=== PATIENT | female | born 1980 | race Caucasian/White ===

== ENCOUNTER 2017-03-17 12:07 | Observation (INO) | payer OTHER ==
[2017-03-17] MEDS ORDERED: ACETAMINOPHEN IV (For NPO) 1,000 MG in SALINE 100 100ML.BAG IVPB STA (12:27)
[2017-03-17] MEDS ORDERED: SODIUM CHLORIDE 0.9% 1,000 ML IV STA (12:27)
--- NOTE | 2017-03-17 12:38 | ED ---
General Adult HPI - General Chief complaint: Abdominal Pain Stated complaint: Abd Pain Time Seen by Provider: 03/17/17 12:22 Source: patient, RN notes reviewed Mode of arrival: ambulatory Limitations: no limitations - History of Present Illness Initial comments: Patient 36-year-old female who presents emergency room today with chief complaint of right upper quadrant pain over the last 3 days. Patient does admit that she was seen at urgent care advised come here to the emergency room to have gallbladder checked. She does state pain has been somewhat constant. Does admit that she's felt nauseated at times. States she's not had any appetite. Denies any other complaints or symptoms. Patient denies any recent shortness of breath, chest pain, back pain, abdominal pain, nausea or vomiting, numbness or tingling, dysuria or hematuria, constipation or diarrhea, headaches or visual changes, or any other complaints. - Related Data Home Medications Medication Instructions Recorded Confirmed No Known Home Medications [No 03/17/17 03/17/17 Known Home Medications] Allergies Allergy/AdvReac Type Severity Reaction Status Date / Time fluoxetine HCl [From Prozac] AdvReac Unknown Unknown Verified 03/17/17 12:23 Review of Systems ROS Statement: Those systems with pertinent positive or pertinent negative responses have been documented in the HPI. ROS Other: All systems not noted in ROS Statement are negative. Past Medical History Past Medical History: No Reported History History of Any Multi-Drug Resistant Organisms: None Reported Past Surgical History: Orthopedic Surgery Additional Past Surgical History / Comment(s): RIGHT shoulder 2008, Tubal ligation 2015. q Past Anesthesia/Blood Transfusion Reactions: No Reported Reaction Additional Past Anesthesia/Blood Transfusion Reaction / Comment(s): STATED " TOOK LONG TIME TO WAKE UP" Past Psychological History: Anxiety Smoking Status: Heavy tobacco smoker Past Alcohol Use History: Occasional Past Drug Use History: None Reported - Past Family History Father Family Medical History: Diabetes Mellitus Additional Family Medical History / Comment(s): mother breast cancer father diabetic Mother Family Medical History: Cancer Additional Family Medical History / Comment(s): BREAST CANCER General Exam - General Exam Comments Initial Comments: General: The patient is awake and alert, in no distress, and does not appear acutely ill. Eye: Pupils are equal, round and reactive to light, extra-ocular movements are intact. No nystagmus. There is normal conjunctiva bilaterally. No signs of icterus. Ears, nose, mouth and throat: There are moist mucous membranes and no oral lesions. Neck: The neck is supple, there is no tenderness or JVD. Cardiovascular: There is a regular rate and rhythm. No murmur, rub or gallop is appreciated. Respiratory: Lungs are clear to auscultation, respirations are non-labored, breath sounds are equal. No wheezes, stridor, rales, or rhonchi. Gastrointestinal: Normal appearance abdomen. Normal bowel sounds. Abdomen soft on palpation. Patient does have mild tenderness right upper quadrant. No rebound tenderness. No guarding. No CVA tenderness. Musculoskeletal: Normal ROM, no tenderness. Strength 5/5. Sensation intact. Pulses equal bilaterally 2+. Neurological: A&O x 3. CN II-XII intact, There are no obvious motor or sensory deficits. Coordination appears grossly intact. Speech is normal. Skin: Skin is warm and dry and no rashes or lesions are noted. Psychiatric: Cooperative, appropriate mood & affect, normal judgment. Limitations: no limitations Course Vital Signs 03/17/17 12:17 Temperature 100.8 F H Pulse Rate 83 Respiratory 18 Rate Blood Pressure 166/97 O2 Sat by Pulse 99 Oximetry Medical Decision Making - Medical Decision Making Patient still experiencing some pain to the right upper quadrant. Her labs been reviewed. Patient's ultrasound showing evidence for cholelithiasis with sludge and possible evidence for acute cholecystitis. Results were discussed with the attending physician who did discuss case with admitting physician Dr. Mobley. - Lab Data Result diagrams: 03/17/17 12:48 03/17/17 12:48 Lab Results 03/17/17 03/17/17 03/17/17 Range/Units 12:48 12:48 13:16 WBC 7.8 (3.8-10.6) k/uL RBC 4.43 (3.80-5.40) m/uL Hgb 15.2 (11.4-16.0) gm/dL Hct 45.0 (34.0-46.0) % MCV 101.6 H (80.0-100.0) fL MCH 34.3 (25.0-35.0) pg MCHC 33.7 (31.0-37.0) g/dL RDW 12.7 (11.5-15.5) % Plt Count 207 (150-450) k/uL Neutrophils % 78 % Lymphocytes % 13 % Monocytes % 7 % Eosinophils % 0 % Basophils % 1 % Neutrophils # 6.1 (1.3-7.7) k/uL Lymphocytes # 1.0 (1.0-4.8) k/uL Monocytes # 0.5 (0-1.0) k/uL Eosinophils # 0.0 (0-0.7) k/uL Basophils # 0.0 (0-0.2) k/uL Sodium 137 (137-145) mmol/L Potassium 4.7 (3.5-5.1) mmol/L Chloride 105 (98-107) mmol/L Carbon Dioxide 22 (22-30) mmol/L Anion Gap 10 mmol/L BUN 4 L (7-17) mg/dL Creatinine 0.59 (0.52-1.04) mg/dL Est GFR (MDRD) Af Amer >60 (>60 ml/min/1.73 sqM) Est GFR (MDRD) Non-Af >60 (>60 ml/min/1.73 sqM) Glucose 83 (74-99) mg/dL Calcium 9.6 (8.4-10.2) mg/dL Total Bilirubin 0.9 (0.2-1.3) mg/dL AST 48 H (14-36) U/L ALT 48 (9-52) U/L Alkaline Phosphatase 62 (38-126) U/L Total Protein 7.2 (6.3-8.2) g/dL Albumin 4.5 (3.5-5.0) g/dL Amylase 33 (30-110) U/L Lipase 57 (23-300) U/L Urine Color Yellow Urine Appearance Clear (Clear) Urine pH 6.0 (5.0-8.0) Ur Specific [place] 1.009 (1.001-1.035) Urine Protein Negative (Negative) Urine Glucose (UA) Negative (Negative) Urine Ketones 2+ H (Negative) Urine Blood Negative (Negative) Urine Nitrite Negative (Negative) Urine Bilirubin Negative (Negative) Urine Urobilinogen 2.0 (<2.0) mg/dL Ur Leukocyte Esterase Negative (Negative) Disposition Clinical Impression: Acute cholecystitis Disposition: ADMITTED IP TO THIS [facility] Condition: Stable Referrals: None,Stated [Primary Care Provider] - 1-2 days Time of Disposition: 14:30
[2017-03-17 13:01] LABS: Basophils % (A) 1 %; CH 34.2; CHCM 33.8; Eosinophils % (A) 0 %; HDW 1.99; HGB 15.2 gm/dL (11.4-16.0); Luc # (Auto) 0.13; Luc % (Auto) 2; Lymphocytes % (A) 13 %; MCH 34.3 pg (25.0-35.0); MCHC 33.7 g/dL (31.0-37.0); MCV 101.6 fL (80.0-100.0); Mean Platelet Volume 7.6; Monocytes # (A) 0.5 k/uL (0-1.0); Monocytes % (A) 7 %; Neutrophils # (A) 6.1 k/uL (1.3-7.7); Neutrophils % (A) 78 %; RBC 4.43 m/uL (3.80-5.40); RDW 12.7 % (11.5-15.5); WBC 7.8 k/uL (3.8-10.6); WBC (Perox) 7.53
[2017-03-17 13:09] LABS: ALT 48 U/L (9-52); AST 48 U/L (14-36); Alkaline Phosphatase 62 U/L (38-126); Amylase 33 U/L (30-110); Anion Gap 10 mmol/L; Blood Urea Nitrogen 4 mg/dL (7-17); Calcium 9.6 mg/dL (8.4-10.2); Carbon Dioxide 22 mmol/L (22-30); Chloride 105 mmol/L (98-107); Glucose 83 mg/dL (74-99); Non-African American GFR(MDRD) >60 (>60 ml/min/1.73 sqM); Potassium 4.7 mmol/L (3.5-5.1); Sodium 137 mmol/L (137-145); Total Bilirubin 0.9 mg/dL (0.2-1.3); Total Protein 7.2 g/dL (6.3-8.2)
[2017-03-17 13:20] LABS: Appearance,Urine Clear (Clear); Bilirubin,Urine Negative (Negative); Glucose,Urine (UA) Negative (Negative); Ketones,Urine 2+ (Negative); Leukocyte Esterase,Urine Negative (Negative); Nitrite,Urine Negative (Negative); Protein,Urine Negative (Negative); Specific Gravity,Urine 1.009 (1.001-1.035); UA Billing (MACRO vs. MICRO) CHEM
--- NOTE | 2017-03-17 13:48 | US ---
EXAMINATION TYPE: US abdomen limited DATE OF EXAM: 03/17/2017 COMPARISON: NONE CLINICAL HISTORY: RUQ pain x 3 days. EXAM MEASUREMENTS: Liver Length: 13.6 cm Gallbladder Wall: 0.3 cm CBD: 0.3 cm Right Kidney: 11.7 x 4.6 x 5.6 cm Pancreas: portions visualized wnl, partially obscured by bowel gas Liver: wnl Gallbladder: enlarged, sludge filled with large dependant stone Evidence for sonographic Jacobs's sign: tender CBD: wnl Right Kidney: wnl Limited views of the pancreas are unremarkable. The liver is normal in size without biliary dilatation. The gallbladder is distended with significant sludge within it. There is a 2.8 cm stone in the neck o f the gallbladder. The gallbladder wall measures 2.8 mm. The distal common hepatic duct measures 3 mm . There is a positive sonographic Jacobs's sign. The right kidney is normal. IMPRESSION: CHOLELITHIASIS AND POSSIBLE ACUTE CHOLECYSTITIS.
[2017-03-17] MEDS ORDERED: ACETAMINOPHEN TAB 325 MG TAB PO PRN (14:51)
[2017-03-17] MEDS ORDERED: NALOXONE 0.4 MG/ML 1 ML VIAL IV PRN (14:51)
[2017-03-17] MEDS ORDERED: ONDANSETRON 4 MG/2 ML VIAL IVP PRN (14:51)
[2017-03-17] MEDS: HYDROmorphone 1 MG/ML 1 ML SYRINGE IV PRN ×4 (15:07→23:08)
[2017-03-17] MEDS ORDERED: PIPERACILLIN-TAZOBACTAM 3.375 GM in DEXTROSE/WATER 1 50ML.BAG IVPB STA (16:19)
[2017-03-17 16:52] VITALS: BMI 27.3
--- NOTE | 2017-03-17 17:45 | P.GSHP ---
History of Present Illness H&P Date: 03/17/17 Chief Complaint: Right upper quadrant pain Dear 6-year-old female who knows that she has a stone in the past presents with a three-day history of worsening right upper quadrant pain which is non-mobile. Improved by pain medication made worse by moving about. No current association with food. She does have some history of fever and shaking chills. Her nausea and pain of settled down since she's been admitted. There is no history of acholic stools. She is at the previous history gastroesophageal reflux disease but currently does not have that I was just limited during . She's had no other abdominal surgery recently. - Constitutional Constitutional: Reports chills, Reports fever, Reports sweats - EENT Eyes: denies blurred vision - Cardiovascular Cardiovascular: Denies chest pain, Denies claudication, Denies dyspnea on exertion - Respiratory Respiratory: Denies cough - Gastrointestinal Gastrointestinal: Denies abdominal pain, Denies diarrhea, Denies nausea, Denies vomiting - Genitourinary (Female) Genitourinary: Denies dysuria, Denies hematuria - Musculoskeletal Musculoskeletal: Denies myalgias - Integumentary Integumentary: Denies pruritus, Denies rash - Neurological Neurological: Denies numbness, Denies weakness Past Medical History Past Medical History: No Reported History History of Any Multi-Drug Resistant Organisms: None Reported Past Surgical History: Orthopedic Surgery Additional Past Surgical History / Comment(s): RIGHT shoulder 2008, Tubal ligation 2015. q Past Anesthesia/Blood Transfusion Reactions: No Reported Reaction Additional Past Anesthesia/Blood Transfusion Reaction / Comment(s): STATED " TOOK LONG TIME TO WAKE UP" Smoking Status: Heavy tobacco smoker Past Alcohol Use History: Occasional Past Drug Use History: None Reported - Past Family History Father Family Medical History: Diabetes Mellitus Additional Family Medical History / Comment(s): mother breast cancer father diabetic Mother Family Medical History: Cancer Additional Family Medical History / Comment(s): BREAST CANCER Medications and Allergies Home Medications Medication Instructions Recorded Confirmed Type No Known Home Medications [No 03/17/17 03/17/17 History Known Home Medications] Allergies Allergy/AdvReac Type Severity Reaction Status Date / Time fluoxetine HCl [From Prozac] AdvReac Unknown Unknown Verified 03/17/17 12:23 Surgical - Exam Vital Signs Temp Pulse Resp BP Pulse Ox 100.8 F H 83 18 166/97 99 03/17/17 12:17 03/17/17 12:17 03/17/17 12:17 03/17/17 12:17 03/17/17 12:17 - General well developed, well nourished, no distress - Eyes PERRL - ENT normal pinna, normal nares, normal mucosa - Neck no masses, no bruits, trachea midline - Respiratory normal expansion, normal respiratory effort - Cardiovascular Rhythm: regular - Abdomen Abdomen: soft, tender - Integumentary no rash, no abnormal pigmentation - Musculoskeletal normal gait, normal posture - Psychiatric oriented to time, oriented to person, oriented to place, speech is normal, memory intact Results - Labs 03/17/17 12:48 03/17/17 12:48 Abnormal Lab Results - Last 24 Hours (Table) 03/17/17 03/17/17 03/17/17 Range/Units 12:48 12:48 13:16 MCV 101.6 H (80.0-100.0) fL BUN 4 L (7-17) mg/dL AST 48 H (14-36) U/L Urine Ketones 2+ H (Negative) Diabetes panel 03/17/17 Range/Units 12:48 Sodium 137 (137-145) mmol/L Potassium 4.7 (3.5-5.1) mmol/L Chloride 105 (98-107) mmol/L Carbon Dioxide 22 (22-30) mmol/L BUN 4 L (7-17) mg/dL Creatinine 0.59 (0.52-1.04) mg/dL Glucose 83 (74-99) mg/dL Calcium 9.6 (8.4-10.2) mg/dL AST 48 H (14-36) U/L ALT 48 (9-52) U/L Alkaline Phosphatase 62 (38-126) U/L Total Protein 7.2 (6.3-8.2) g/dL Albumin 4.5 (3.5-5.0) g/dL Calcium panel 03/17/17 Range/Units 12:48 Calcium 9.6 (8.4-10.2) mg/dL Albumin 4.5 (3.5-5.0) g/dL Pituitary panel 03/17/17 Range/Units 12:48 Sodium 137 (137-145) mmol/L Potassium 4.7 (3.5-5.1) mmol/L Chloride 105 (98-107) mmol/L Carbon Dioxide 22 (22-30) mmol/L BUN 4 L (7-17) mg/dL Creatinine 0.59 (0.52-1.04) mg/dL Glucose 83 (74-99) mg/dL Calcium 9.6 (8.4-10.2) mg/dL Adrenal panel 03/17/17 Range/Units 12:48 Sodium 137 (137-145) mmol/L Potassium 4.7 (3.5-5.1) mmol/L Chloride 105 (98-107) mmol/L Carbon Dioxide 22 (22-30) mmol/L BUN 4 L (7-17) mg/dL Creatinine 0.59 (0.52-1.04) mg/dL Glucose 83 (74-99) mg/dL Calcium 9.6 (8.4-10.2) mg/dL Total Bilirubin 0.9 (0.2-1.3) mg/dL AST 48 H (14-36) U/L ALT 48 (9-52) U/L Alkaline Phosphatase 62 (38-126) U/L Total Protein 7.2 (6.3-8.2) g/dL Albumin 4.5 (3.5-5.0) g/dL - Imaging Additional studies: cholelithisis, Assessment and Plan (1) Acute cholecystitis Status: Acute Plan: 36-year-old female who presents with right upper quadrant pain suspected acute cholecystitis because of the duration of her symptoms. I recommended laparoscopic cholecystectomy risks benefits were discussed and informed consent has been obtained she will be operated on tomorrow morning.
[2017-03-17] MEDS ORDERED: ALPRAZolam 0.25 MG TAB PO PRN (21:42)
[2017-03-17] MEDS: amLODIPine 2.5 MG TAB PO SCH (22:01)
[2017-03-17] MEDS: PIPERACILLIN-TAZOBACTAM 3.375 GM in DEXTROSE/WATER 1 50ML.BAG IVPB SCH (23:41)
[2017-03-18] MEDS: HYDROmorphone 1 MG/ML 1 ML SYRINGE IV PRN ×4 (02:13→21:09)
[2017-03-18] MEDS: SODIUM CHLORIDE 0.9% 1,000 ML IV SCH (06:00)
[2017-03-18 07:40] LABS: Basophils % (A) 1 %; CH 34.2; Eosinophils # (A) 0.1 k/uL (0-0.7); Eosinophils % (A) 2 %; HCT 40.5 % (34.0-46.0); HDW 1.97; HGB 13.5 gm/dL (11.4-16.0); Luc # (Auto) 0.08; Luc % (Auto) 2; Lymphocytes # (A) 0.9 k/uL (1.0-4.8); Lymphocytes % (A) 17 %; MCH 34.6 pg (25.0-35.0); MCHC 33.3 g/dL (31.0-37.0); MCV 103.9 fL (80.0-100.0); Macrocytosis Slight; Mean Platelet Volume 7.5; Monocytes # (A) 0.4 k/uL (0-1.0); Monocytes % (A) 7 %; Neutrophils # (A) 3.6 k/uL (1.3-7.7); Neutrophils % (A) 71 %; RBC 3.89 m/uL (3.80-5.40); RDW 12.9 % (11.5-15.5); WBC 5.1 k/uL (3.8-10.6); WBC (Perox) 5.33
[2017-03-18] MEDS: PIPERACILLIN-TAZOBACTAM 3.375 GM in DEXTROSE/WATER 1 50ML.BAG IVPB SCH ×3 (07:44→23:20)
[2017-03-18] MEDS: amLODIPine 2.5 MG TAB PO SCH (07:44)
[2017-03-18 07:55] LABS: ALT 170 U/L (9-52); AST 428 U/L (14-36); Alkaline Phosphatase 100 U/L (38-126); Anion Gap 6 mmol/L; Blood Urea Nitrogen 2 mg/dL (7-17); Calcium 9.3 mg/dL (8.4-10.2); Carbon Dioxide 25 mmol/L (22-30); Chloride 105 mmol/L (98-107); Glucose 83 mg/dL (74-99); Non-African American GFR(MDRD) >60 (>60 ml/min/1.73 sqM); Sodium 136 mmol/L (137-145); Total Bilirubin 2.1 mg/dL (0.2-1.3); Total Protein 5.7 g/dL (6.3-8.2)
[2017-03-18] MEDS ORDERED: IV FLUID CONTINUATION 1,000 ML IV ONE (12:26)
[2017-03-18] MEDS ORDERED: fentaNYL (PF) 50 MCG/ML 2 ML AMP IVP ONE (13:13)
[2017-03-18] MEDS ORDERED: ONDANSETRON 4 MG/2 ML VIAL IVP ONE (13:21)
[2017-03-18] MEDS ORDERED: DEXAMETHASONE SOD PHOSPHATE 10 MG/ML 1 ML VIAL IV ONE (13:22)
[2017-03-18] MEDS ORDERED: HEPARIN SODIUM,PORCINE 5,000 UNIT/ML 1 ML VIAL SQ ONE (13:47)
[2017-03-18] MEDS ORDERED: LACTATED RINGERS 1,000 ML IV ONE ×2 (13:48→16:00)
[2017-03-18] MEDS ORDERED: LIDOCAINE 1%-EPI 1:100,000 20 ML VIAL SQ ONE ×2 (14:15)
[2017-03-18] MEDS ORDERED: LORazepam 2 MG/ML SYRINGE IV PRN (15:50)
[2017-03-18] MEDS: HYDROmorphone 1 MG/ML 1 ML SYRINGE IVP ONE ×4 (16:40→17:19)
--- NOTE | 2017-03-18 16:43 | P.OP ---
Date of Procedure: 03/18/17 Preoperative Diagnosis: Acute cholecystitits Postoperative Diagnosis: Acute cholecystitis Procedure(s) Performed: laparoscpoic choelcystectomy Implants: Anesthesia: MARCI Surgeon: Chance Mobley Pathology: other Condition: stable Indications for Procedure: Operative Findings: Large hydropic gallbladder approximately 8 inches in length Description of Procedure: The patient is a 36-year-old female who presented with epigastric and upper abdominal pain which localized in the right upper quadrant was tender with guarding in the right upper quadrant elevated white count and an ultrasound suggested cholelithiasis. Clinical diagnosis of acute cholecystitis was made. The risks benefits and possible complications of the procedure were discussed in detail and informed consent was obtained. Patient was identified in the preop operating holding area questions were answered and she was taken back to the operating room where she was placed in the supine position. She was given general anesthesia with endotracheal intubation followed by the placement of an orogastric tube and a appropriate timeout was called the indication procedure ALLERGIES medications from her prophylaxis were all discussed. Abdomen is prepped and draped in the usual sterile surgical fashion supraumbilical region was infiltrated with quarter percent with local anesthesia and incision was made with 11 blade and Veress needle was introduced and abdomen was insufflated to 15 mmHg. Once that was done a 10 mm epigastric port and two 5 mm right upper quadrant ports were placed.the gallbladder was retracted cephalad and superiorly.it was noted that the supraumbilical 5 mm port was too high and therefore another 5 mm infraumbilical port was placed and this was removed. This allowed better visualization. Of note was a severely distended very large hydropic gallbladder measuring approximately 6 inches. The patient also had a very large right lobe of liver and a very diminutive left lobe of the liver. A very needle was used to attempt to aspirate the gallbladder but was unsuccessful due to thickness of the secretions. The liver was soft slightly stipulated but allowed the gallbladder to be retracted Side and superiorly. There were very large amount of return of adhesions with the gallbladder body and infundibulum and to the junction of the cystic and common bile duct. Meticulous dissection was done first take that down on the left side. After that the attachment of the gallbladder the liver was taken down along the left border over to the liver edge and then inferiorly so as to encounter the cystic artery and its branches which were individually clipped and transected. Further dissection was done so as to take the gallbladder off the hepatic plate and then obtain a good critical view. There were large number of inflammatory adhesions on the right lateral side which were also taken down with the help of electrocautery. Once appropriate critical view identifying the cystic duct clearly was done the cystic duct was then clipped proximally and distally with endoclips. It was dilated sharply with the scissors. The remaining bladder was taken off the gallbladder fossa with the help of electrocautery placed in an Endo Catch bag and removed through the 10 mm port site had to be increased to approximately 4 inches with electrocautery due to the size of the stone in the gallbladder itself. The abdomen was then reinspected after insufflation, it was thoroughly irrigated and sucked dry 19-[place] drain was placed in the subhepatic fossa brought to the right side. It was secured elbow with 3-0 nylon. After noting appropriate hemostasis and proper washou the procedure was completed gas was turned off. The epigastric incision was closed with running and interrupted 0 Vicryl. It was closed with 4-0 Monocryl and Dermabond was applied. Patient tolerated procedure well there were no other complications. Patient was extubated and taken to recovery room in stable condition.
[2017-03-18] MEDS: NICOTINE 14MG/24HR PATCH TRANSDERM SCH (18:11)
[2017-03-18] MEDS: HYDROcodone/APAP 5-325MG 1 EACH TAB PO PRN ×2 (18:23→23:14)
--- NOTE | 2017-03-18 22:06 | CONS ---
REASON FOR CONSULTATION: Advice regarding DJD and multiple other medical issues , requested by Dr. Mobley. HISTORY OF PRESENT ILLNESS: This 36-year-old woman with a past medical history of DJD, history of anxiety, history of nicotine dependence, was admitted with severe abdominal pain. The pain was mostly situated in the right upper quadrant. The ultrasound of the gallbladder showed cholelithiasis and possible cholecystitis. Dr. Mobley is following the patient closely for possible cholecystectomy. There is no history of any fever, rigor, chills; no history of headache, loss of consciousness, seizures. She was feeling nauseated at times. PAST MEDICAL HISTORY: 1. History of DJD. 2. History of anxiety. 3. History of nicotine dependence. Medications prior to admission include: None. ALLERGIES: FLUOXETINE. FAMILY HISTORY: History of diabetes mellitus, breast cancer. SOCIAL HISTORY: History of smoking. Occasional alcohol intake. REVIEW OF SYSTEMS: ENT: No diminished hearing. No diminished vision. CARVIOVASCULAR SYSTEM: No angina, palpitations. RESPIRATORY SYSTEM: As mentioned earlier. GI: As mentioned earlier. : No dysuria, retention. NERVOUS SYSTEM: No numbness, weakness. ALLERGY/IMMUNOLOGY: No asthma, hayfever. MUSCULOSKELETAL: As mentioned earlier. HEMATOLOGY/ONCOLOGY: No history of anemia. ENDOCRINE: No history of diabetes, hypothyroidism. CONSTITUTIONAL: As mentioned earlier. DERMATOLOGY: Negative. RHEUMATOLOGY: Negative. PSYCHIATRY: As mentioned earlier. PHYSICAL EXAMINATION: Alert and x3. Pulse is 58, blood pressure 153/93, respiration 16, temperature 98.8, pulse ox 98% on room air. HEENT: Conjunctivae normal. NECK: No jugular venous distention. CARDIOVASCULAR: S1, S2 muffled. RESPIRATORY: Breath sounds diminished at the bases. A few rhonchi. No crackles. ABDOMEN: Soft. Mild diffuse tenderness in the right upper quadrant. LEGS: No edema. No swelling. NERVOUS SYSTEM: No focal deficit. LABS: CBC shows MCV 103.9. Otherwise, total bilirubin is 2.1. AST 428. Alkaline phosphatase is 100. ALT is 170. ASSESSMENT: 1. Acute right upper quadrant abdominal pain with cholelithiasis and acute cholecystitis. 2. Increased AST, ALT with possible hepatitis origin. 3. Hyponatremia. 4. Increased MCV. 5. History degenerative joint disease. 6. History of anxiety. 7. History of nicotine dependence. RECOMMENDATIONS AND DISCUSSION: In this 36-year-old woman who presented with multiple complex medical issues, we will monitor the patient closely, continue the current medications, continue with symptomatic treatment. Broad-spectrum IV antibiotics have been initiated. Recommend DVT prophylaxis. Habitrol. P.r.n. Ativan. Will follow the patient closely with you. The patient may be asked to follow with a primary physician closely after discharge. Thank you, Dr. Mobley, for letting us participate in the care of this patient. ANJANA
[2017-03-19] MEDS: HYDROmorphone 1 MG/ML 1 ML SYRINGE IV PRN ×2 (01:48→05:47)
[2017-03-19 01:51] VITALS: RESP 16
[2017-03-19] MEDS: HYDROcodone/APAP 5-325MG 1 EACH TAB PO PRN ×2 (09:46→14:55)
[2017-03-19] MEDS: amLODIPine 2.5 MG TAB PO SCH (09:48)
[2017-03-19] MEDS: NICOTINE 14MG/24HR PATCH TRANSDERM SCH (09:48)
[2017-03-19] MEDS: SODIUM CHLORIDE 0.9% 1,000 ML IV SCH ×3 (09:49→11:21)
[2017-03-19] MEDS: PIPERACILLIN-TAZOBACTAM 3.375 GM in DEXTROSE/WATER 1 50ML.BAG IVPB SCH (11:17)
[2017-03-19 11:18] LABS: ALT 155 U/L (9-52); AST 147 U/L (14-36); Alkaline Phosphatase 81 U/L (38-126); Anion Gap 9 mmol/L; Blood Urea Nitrogen 3 mg/dL (7-17); Calcium 9.6 mg/dL (8.4-10.2); Carbon Dioxide 24 mmol/L (22-30); Chloride 102 mmol/L (98-107); Glucose 86 mg/dL (74-99); Non-African American GFR(MDRD) >60 (>60 ml/min/1.73 sqM); Potassium 3.8 mmol/L (3.5-5.1); Sodium 135 mmol/L (137-145); Total Bilirubin 0.8 mg/dL (0.2-1.3)
--- NOTE | 2017-03-19 12:04 | P.DS ---
Providers Date of admission: 03/17/17 15:12 Expected date of discharge: 03/19/17 Attending physician: Chance Mobley Consults: 03/17/17 21:32 Consult Physician Routine Consulting Provider: Sj Tamayo Consult Reason/Comments: Elevated Blood Pressure Do you want consulting provider notified?: Yes Primary care physician: Stated None - Discharge Diagnosis(es) (1) Acute cholecystitis Current Visit: Yes Status: Acute Hospital Course: Patient presented with right upper quadrant pain and was diagnosed having acute cholecystitis she underwent a lap scopic cholecystectomy which was uneventful. The gallbladder was really distended and large. High amplitude exception findings were discussed with the patient. The patient is doing well tolerating diet labs returned normal she's been discharged home today and regular diet and follow up in my clinic in about 4 days. Pertinent Studies: Ultrasound of the abdomen Procedures: Laparoscopic choelcystectomy Patient Condition at Discharge: Good Plan - Discharge Summary New Discharge Prescriptions: New Amoxic-Pot Clav 875-125Mg [Augmentin 875-125] 1 tab PO Q12HR #10 tablet HYDROcodone/APAP 5-325MG [[place] 5-325] 1 tab PO Q4HR PRN #20 tab PRN Reason: Pain Ibuprofen [Motrin] 800 mg PO Q8H PRN #20 tab PRN Reason: Pain Discharge Medication List Amoxic-Pot Clav 875-125Mg [Augmentin 875-125] 1 tab PO Q12HR #10 tablet [Rx] HYDROcodone/APAP 5-325MG [[place] 5-325] 1 tab PO Q4HR PRN #20 tab 03/19/17 [Rx] Ibuprofen [Motrin] 800 mg PO Q8H PRN #20 tab 03/19/17 [Rx] Follow up Appointment(s)/Referral(s): Chance Mobley MD [STAFF PHYSICIAN] - 03/23/17 Leigh Engle MD [REFERRING] - 1 Week Patient Instructions/Handouts: Laparoscopic Cholecystectomy (DC), *Surgery [facility] - Laparoscopic Cholecystectomy Discharge Instructions Activity/Diet/Wound Care/Special Instructions: Regular diet AMbulate as tolerated Use incentive spirometer as directed No driving on pain medications or when having pain May shower in 24 hours No heavy liftin more than 20 lbs for 6 weeks Discharge Disposition: HOME SELF-CARE
[2017-03-19 14:04] VITALS: BP 121/75; PULSE 68; TEMP 98.6
--- NOTE | 2017-03-19 20:28 | PN ---
DATE OF SERVICE: 03/19/17 This 36-year-old woman was admitted after right upper quadrant abdominal pain, also had Cholelithiasis, cholecystectomy, by Dr. Mobley. No chest pain. No palpitations. No fever. PHYSICAL EXAMINATION: On exam, alert and oriented times three. Pulse 77. Blood pressure 129/79. Respiratory rate 16. Temperature 98.7. Pulse ox 99% on room air. HEENT: Conjunctivae normal. NECK: No JVD. Cardiovascular: S1, S2 muffled. Respiratory: Breath sounds diminished at the bases. No rhonchi. No crackles. Abdomen soft. Status post surgery. Legs, no edema. No swelling. Nervous system: No focal deficits. Labs: CBC not available. Sodium 135. LFTs are noted, much improved. ASSESSMENT: 1. Acute right upper quadrant abdominal pain with Cholelithiasis and acute cholecystitis, status post laparoscopic cholecystectomy. 2. Increased AST/ALT, possible acute hepatitis. 3. Hyponatremia. 4. Increased MCV. 5. History of degenerative joint disease. 6. History of anxiety. 7. History of nicotine dependence. RECOMMENDATIONS AND DISCUSSION: Continue the current medications, continue with monitoring, symptomatic treatment. Otherwise, at this time, we will monitor the patient closely. Incentive spirometry. Recommend close follow-up with the primary care physician and surgery. Further recommendations to follow. MTDD
== END 2017-03-19 16:41 | disposition home or self-care (01) ==
LOC: EC 12:07 → 3SUR 15:12 → INTOOBSV 15:12
PROVIDERS: ADMIT Surgery; ATTEND Surgery
DX: K80.00 Calculus of gallbladder with acute cholecystitis without obstruction (principal); K82.1 Hydrops of gallbladder; E87.1 Hypo-osmolality and hyponatremia; M19.91 Primary osteoarthritis, unspecified site; F41.9 Anxiety disorder, unspecified; Z88.8 Allergy status to other drugs, medicaments and biological substances; Z80.3 Family history of malignant neoplasm of breast; F17.200 Nicotine dependence, unspecified, uncomplicated
CPT/HCPCS: 47562; 96365; 96366 ×3; 36415; 81025 ×2; 88304; 80053 ×3; 82150; 83690; 85025 ×2; 81003; 76705; G0378 ×3; S4990 ×2; J1644; J1100; J2405; J3010; J1170 ×3; J2543 ×3; J0131

== ENCOUNTER 2017-07-31 22:30 | Observation (INO) | payer OTHER ==
[2017-07-31 22:38] LABS: Glucose,Whole Blood 87 mg/dL (75-99)
[2017-07-31 23:05] LABS: Basophils # (A) 0.1 k/uL (0-0.2); Basophils % (A) 1 %; CHCM 32.5; Eosinophils # (A) 0.1 k/uL (0-0.7); Eosinophils % (A) 1 %; HCT 45.2 % (34.0-46.0); HDW 1.84; HGB 14.3 gm/dL (11.4-16.0); Luc # (Auto) 0.19; Luc % (Auto) 2; Lymphocytes # (A) 3.5 k/uL (1.0-4.8); Lymphocytes % (A) 38 %; MCH 32.2 pg (25.0-35.0); MCHC 31.6 g/dL (31.0-37.0); MCV 102.1 fL (80.0-100.0); Macrocytosis Slight; Mean Platelet Volume 7.1; Monocytes # (A) 0.5 k/uL (0-1.0); Monocytes % (A) 6 %; Neutrophils # (A) 4.9 k/uL (1.3-7.7); Neutrophils % (A) 52 %; RBC 4.43 m/uL (3.80-5.40); RDW 13.5 % (11.5-15.5); WBC 9.3 k/uL (3.8-10.6); WBC (Perox) 9.18
[2017-07-31 23:08] LABS: Appearance,Urine Clear (Clear); Bilirubin,Urine Negative (Negative); Glucose,Urine (UA) Negative (Negative); Ketones,Urine Negative (Negative); Leukocyte Esterase,Urine Trace (Negative); Nitrite,Urine Negative (Negative); Particle Count 989; Protein,Urine Negative (Negative); RBC,Urine 1 /hpf (0-5); Specific Gravity,Urine 1.001 (1.001-1.035); Squamous Epithelial Cell,Urine 1 /hpf (0-4); UA Billing (MACRO vs. MICRO) MICRO; Urobilinogen,Urine <2.0 mg/dL (<2.0); WBC,Urine 3 /hpf (0-5)
[2017-07-31 23:14] LABS: HCG,Qualitative Serum Not Detected
[2017-07-31 23:15] LABS: Partial Thromboplastin Time 24.3 sec (22.0-30.0); Prothrombin Time 9.6 sec (9.0-12.0)
--- NOTE | 2017-07-31 23:16 | XR ---
EXAMINATION TYPE: XR chest 2V DATE OF EXAM: 07/31/2017 COMPARISON: NONE HISTORY: Chest pain TECHNIQUE: Frontal and lateral views of the chest are obtained. FINDINGS: Heart and mediastinum are normal. Lungs are clear. Diaphragm is normal. Bony thorax is int act. There are chest leads. There is a screw in the right scapula. IMPRESSION: No cardiopulmonary disease. Normal heart.
[2017-07-31 23:17] LABS: ALT 32 U/L (9-52); AST 70 U/L (14-36); Alkaline Phosphatase 72 U/L (38-126); Anion Gap 16 mmol/L; Blood Urea Nitrogen 4 mg/dL (7-17); Calcium 9.7 mg/dL (8.4-10.2); Carbon Dioxide 18 mmol/L (22-30); Chloride 106 mmol/L (98-107); Glucose 86 mg/dL (74-99); Non-African American GFR(MDRD) >60 (>60 ml/min/1.73 sqM); Potassium 3.6 mmol/L (3.5-5.1); Sodium 140 mmol/L (137-145); Total Bilirubin 0.4 mg/dL (0.2-1.3); Total Protein 7.3 g/dL (6.3-8.2)
[2017-07-31 23:26] LABS: Creatine Kinase 91 U/L (30-135)
[2017-07-31 23:39] LABS: Creatine Kinase MB <0.2 ng/mL (0.0-2.4); Troponin I <0.012 ng/mL (0.000-0.034)
--- NOTE | 2017-07-31 23:49 | ED ---
Chest Pain HPI <Kashmir Moreira - Last Filed: 08/01/17 00:46> - General Source: patient, EMS Mode of arrival: EMS Limitations: no limitations <Janneth Palomino - Last Filed: 08/01/17 01:16> - General Chief Complaint: Chest Pain Stated Complaint: Chest Pain Time Seen by Provider: 07/31/17 22:34 - History of Present Illness Initial Comments: 36-year-old female patient presents to the emergency department today with complaints of chest pain. Patient states that just prior to calling EMS she had onset of chest pain substernally that radiated into her bilateral shoulders. Patient states that the pain was an aching, stabbing, burning type pain. She denies any radiation of the pain into her back, neck, or jaw. She denies any history of similar symptoms. States that she did become short of breath, nauseated, and felt a little dizzy. Patient denies any sweats with this. She states at its worst the pain was approximately 7 out of 10 on the pain scale. She is currently rating it a 2 out of 10 on the pain scale. She did receive 324 mg of aspirin and 1 nitro in EMS.Patient denies any recent rash , fever, chills, abdominal pain, vomiting, diarrhea, constipation, back pain, numbness, tingling, dizziness, weakness, hematuria, dysuria, urinary urgency, urinary frequency, headache, visual changes, or any other complaints. (Janneth Palomino) - Related Data Home Medications Medication Instructions Recorded Confirmed No Known Home Medications [No 07/31/17 07/31/17 Known Home Medications] Allergies Allergy/AdvReac Type Severity Reaction Status Date / Time fluoxetine HCl [From Prozac] AdvReac Unknown Unknown Verified 07/31/17 22:56 Review of Systems ROS Other: All systems not noted in ROS Statement are negative. <Kashmir Moreira - Last Filed: 08/01/17 00:46> ROS Other: All systems not noted in ROS Statement are negative. <Janneth Palomino - Last Filed: 08/01/17 01:16> ROS Statement: Those systems with pertinent positive or pertinent negative responses have been documented in the HPI. EKG Findings - EKG Comments: EKG Findings:: EKG obtained at 2240 shows normal sinus rhythm with a ventricular rate of 86, MA interval 160, QRS duration 92, QT 370, QTC 442. No evidence of ST elevation or depression. <Janneth Palomino - Last Filed: 08/01/17 01:16> Past Medical History Past Medical History: No Reported History History of Any Multi-Drug Resistant Organisms: None Reported Past Surgical History: Cholecystectomy, Orthopedic Surgery Additional Past Surgical History / Comment(s): RIGHT shoulder 2009, Tubal ligation 2015. q Past Anesthesia/Blood Transfusion Reactions: No Reported Reaction Additional Past Anesthesia/Blood Transfusion Reaction / Comment(s): STATED " TOOK LONG TIME TO WAKE UP" Past Psychological History: Anxiety, Depression Smoking Status: Heavy tobacco smoker Past Alcohol Use History: Daily Past Drug Use History: None Reported - Past Family History Father Family Medical History: Diabetes Mellitus Additional Family Medical History / Comment(s): mother breast cancer father diabetic Mother Family Medical History: Cancer Additional Family Medical History / Comment(s): BREAST CANCER <YeelyndaJanneth Ivana - Last Filed: 08/01/17 01:16> General Exam Limitations: no limitations <Janneth Palomino - Last Filed: 08/01/17 01:16> Course <Kashmir Moreira - Last Filed: 08/01/17 00:46> <Janneth Palomino - Last Filed: 08/01/17 01:16> Vital Signs 07/31/17 07/31/17 08/01/17 22:36 22:50 00:01 Temperature 97.9 F 98.2 F Pulse Rate 101 H 82 Pulse Rate [ 91 Quality Control Lab Tech ] Respiratory 18 18 Rate Blood Pressure 139/81 134/74 O2 Sat by Pulse 98 97 Oximetry - Reevaluation(s) Reevaluation #1: 08/01/17 00:45 I did personally do a [id number] evaluation the patient did discuss the findings with her. Patient did have complaints of midsternal chest pain or radiated to both shoulders tonight. She did come in by EMS with this. She currently is pain-free she did however get pain relief after nitroglycerin was administered. I did discuss the case with the physician academic affairs assistant initially saw the patient as well as with Dr. Larson. 08/01/17 00:46 The patient does have risk factors she has a family history her dad had a heart attack in early 80s also she is a smoker. (Kashmir Moreira) Chest Pain [facility] <Kashmir Moreira - Last Filed: 08/01/17 00:46> <Janneth Palomino - Last Filed: 08/01/17 01:16> - MDM 36-year-old female patient presented to the emergency department today for evaluation of chest pain. Physical examination was unremarkable. Initial labs are unremarkable. Did discuss the case with my attending Dr. Moreira who felt that patient requirements for admission. Case was discussed with Dr. Larson. He agreed to admit patient. (Janneth Palomino) Disposition <Kashmir Moreira - Last Filed: 08/01/17 00:46> <Janneth Palomino - Last Filed: 08/01/17 01:16> Clinical Impression: Chest pain Disposition: ADMITTED IP TO THIS HOSP Condition: Good
[2017-08-01] MEDS ORDERED: ACETAMINOPHEN TAB 325 MG TAB PO PRN (00:27)
--- NOTE | 2017-08-01 00:38 | P.HPIM ---
History of Present Illness H&P Date: 08/01/17 Chief Complaint: Chest pain 36-year-old female patient presents to the emergency department today with complaints of chest pain. Patient states that she was just watching TV when the chest pain started. It was located in the middle as well as the sides of the chest and radiated into both of her shoulders. Patient states that the pain was an aching, stabbing, burning type pain. She denies any radiation of the pain into her arms, neck, or jaw. She denies any history of similar symptoms. States that she did become short of breath, nauseated, and felt a little dizzy and diaphoretic. She states at its worst the pain was approximately 7 out of 10 on the pain scale. She I saw her in the ER she was pain free. She did receive 324 mg of aspirin and 1 nitro in route and that took care of the pain. Overall the pain lasted about 30-40 mins. Patient denies any recent illness , fever, chills, abdominal pain, vomiting, diarrhea, constipation, back pain, numbness, tingling, dizziness, weakness, hematuria, dysuria, urinary urgency, urinary frequency, headache, visual changes, or any other complaints. Review of Systems 12 point ROS performed, negative except HPI Past Medical History Past Medical History: No Reported History History of Any Multi-Drug Resistant Organisms: None Reported Past Surgical History: Cholecystectomy, Orthopedic Surgery Additional Past Surgical History / Comment(s): RIGHT shoulder 2008, Tubal ligation 2014. q Past Anesthesia/Blood Transfusion Reactions: No Reported Reaction Additional Past Anesthesia/Blood Transfusion Reaction / Comment(s): STATED " TOOK LONG TIME TO WAKE UP" Past Psychological History: Anxiety, Depression Smoking Status: Heavy tobacco smoker Past Alcohol Use History: Daily Past Drug Use History: None Reported - Past Family History Father Family Medical History: Diabetes Mellitus Additional Family Medical History / Comment(s): mother breast cancer father diabetic and had problems with his heart in his 30s. Mother Family Medical History: Cancer Additional Family Medical History / Comment(s): BREAST CANCER Medications and Allergies Home Medications Medication Instructions Recorded Confirmed Type No Known Home Medications [No 07/31/17 07/31/17 History Known Home Medications] Allergies Allergy/AdvReac Type Severity Reaction Status Date / Time fluoxetine HCl [From Prozac] AdvReac Unknown Unknown Verified 07/31/17 22:56 Physical Exam Vitals: Vital Signs Temp Pulse Pulse Resp BP Pulse Ox 08/01/17 00:01 98.2 F 82 18 134/74 97 07/31/17 22:50 91 07/31/17 22:36 97.9 F 101 H 18 139/81 98 Intake and Output 07/31/17 07/31/17 08/01/17 14:59 22:59 06:59 Other: Weight 67.132 kg Patient Weight 08/01/17 06:59 Weight 67.132 kg Results CBC & Chem 7: 07/31/17 23:00 07/31/17 23:00 Labs: Abnormal Lab Results - Last 24 Hours (Table) 07/31/17 07/31/17 07/31/17 Range/Units 23:00 23:00 23:00 MCV 102.1 H (80.0-100.0) fL Carbon Dioxide 18 L (22-30) mmol/L BUN 4 L (7-17) mg/dL AST 70 H (14-36) U/L Ur Leukocyte Esterase Trace H (Negative) Assessment and Plan Plan: #1 Acute chest pain: Admit to observation Labs, CXR and EKG reviewed Tele Cycle trops HEART score 2---low risk Cardio consult #2 Smoking: Counseled to quit #3 DVT prophylaxis: Low risk, ambulatory, not indicated.
[2017-08-01 01:43] VITALS: BMI 26.2
[2017-08-01 06:20] VITALS: PULSE 60
[2017-08-01 08:39] VITALS: RESP 16
--- NOTE | 2017-08-01 11:24 | EST ---
EXERCISE STRESS AGE: 36 SEX: F HT: 5'3" WT: 140 PROTOCOL: Randy Stress Test STAGE: III DURATION OF EXERCISE: 9:00. HEART RATE REST: 101 BLOOD PRESSURE REST: 130/87 MAXIMUM HEART RATE ACHIEVED: 166 MAXIMUM BLOOD PRESSURE: 255/97 85% MPHR: 158 100% MPHR: 186 METS: 10.5 INDICATIONS: Chest pain. CLINICAL INFORMATION: Baseline EKG revealed a sinus mechanism without significant ST-T changes. Patient walked on a standard Randy protocol for 9 minutes, achieved a maximum heart rate of 166 beats per minute. Developed some fatigue and shortness of breath, but did not have any angina or arrhythmia. There was some baseline artifact. There is no evidence of any stress-induced ischemia on this study. There was no arrhythmia or angina. Her exercise capacity is somewhat limited. FINAL IMPRESSION: 1. Limited exercise capacity. 2. Negative stress test by EKG criteria with some baseline artifact but no evidence to suggest ischemia. MMODL / IJN: [id number] /
[2017-08-01 12:01] VITALS: BP 123/82; TEMP 98.5
--- NOTE | 2017-08-01 13:53 | P.CRDCN ---
History of Present Illness Consult date: 08/01/17 History of present illness: Mrs. Rodarte is a plesant 36-year-old female with no significant past medical history other than she is a chronic smoker of 1-2 packs per day for 20 years. We have been asked to see her in consultation for complaints of chest pain at rest. She was apparently sitting and watching TV yesterday when she started experiencing midsternal chest pain that radiated into b/l shoulders and down her arms. The pain was described as achy and stabbing with mild burning at times. Durins this pain she felt short of breath, dizzy and mildly nauseated with diaphoresis. She denies palpitations or vomiting. The pain lasted approximately 40 minutes with no specific alleviating factors she can verbalize. She denies PND or orthopnea. EKG reveals sinus mechanism with no acute ST or T-wave abnormalities. Chest xray negative for an acute cardiopulmonary process. Laboratory data reviewed, cardiac enzymes negative x2. Review of Systems At the time of my exam: CONSTITUTIONAL: Denies fever. Denies chills. EYES: Denies blurred vision. Denies vision changes. Denies eye pain. EARS, NOSE, MOUTH & THROAT: Denies headache. Denies sore throat. Denies ear pain. CARDIOVASCULAR: Denies chest pain. Denies shortness of breath. Denies orthopnea. Denies PND. Denies palpitations. RESPIRATORY: Denies cough. GASTROINTESTINAL: Denies abdominal pain. Denies diarrhea. Denies constipation. Denies nausea. Denies vomiting. MUSCULOSKELETAL: Denies myalgias. INTEGUMENTARY: Denies pruitis. Denies rash. NEUROLOGIC: Denies numbness. Denies tingling. Denies weakness. PSYCHIATRIC: Denies anxiety. Denies depression. ENDOCRINE: Denies fatigue. Denies weight change. Denies polydipsia. Denies polyurina. GENITOURINARY: Denies burning, hematuria or urgency with micturation. HEMATOLOGIC: Denies history of anemia. Denies bleeding. Past Medical History Past Medical History: No Reported History History of Any Multi-Drug Resistant Organisms: None Reported Past Surgical History: Cholecystectomy, Orthopedic Surgery Additional Past Surgical History / Comment(s): RIGHT shoulder 2009, Tubal ligation 2015. q Past Anesthesia/Blood Transfusion Reactions: No Reported Reaction Additional Past Anesthesia/Blood Transfusion Reaction / Comment(s): STATED " TOOK LONG TIME TO WAKE UP" Past Psychological History: Anxiety, Depression Smoking Status: Heavy tobacco smoker Past Alcohol Use History: Daily Past Drug Use History: None Reported - Past Family History Father Family Medical History: Diabetes Mellitus Additional Family Medical History / Comment(s): mother breast cancer father diabetic Mother Family Medical History: Cancer Additional Family Medical History / Comment(s): BREAST CANCER Medications and Allergies Home Medications Medication Instructions Recorded Confirmed Type No Known Home Medications [No 07/31/17 07/31/17 History Known Home Medications] Allergies Allergy/AdvReac Type Severity Reaction Status Date / Time fluoxetine HCl [From Prozac] AdvReac Unknown Unknown Verified 07/31/17 22:56 Physical Exam Vitals: Vital Signs Temp Pulse Pulse Resp BP BP Pulse Ox 08/01/17 12:00 98.5 F 16 123/82 99 08/01/17 08:00 98.8 F 16 117/72 96 08/01/17 04:00 98.7 F 60 18 128/71 97 08/01/17 01:30 18 08/01/17 01:15 98.8 F 71 18 124/70 98 08/01/17 00:01 98.2 F 82 18 134/74 97 07/31/17 22:50 91 07/31/17 22:36 97.9 F 101 H 18 139/81 98 Intake and Output 07/31/17 08/01/17 08/01/17 22:59 06:59 14:59 Other: # Voids 1 Weight 67.132 kg 67.132 kg Blood pressure 117/72 with a heart rate of 60. GENERAL: This is a 36-year-old female in no apparent distress at the time of my examination. HEENT: Head is atraumatic, normocephalic. Pupils are equal, round. Sclerae anicteric. Conjunctivae are clear. Mucous membranes of the mouth are moist. Neck is supple. There is no jugular venous distention. No carotid bruit is heard. LUNGS: Clear to auscultation no wheezes, rales or rhonchi. No chest wall tenderness is noted on palpation or with deep breathing. HEART: Regular rate and rhythm without murmurs, rubs or gallops. S1 and S2 heard. ABDOMEN: Soft, nontender. Bowel sounds are heard. No organomegaly noted. EXTREMITIES: 2+ peripheral pulses with no evidence of peripheral edema and no calf tenderness noted. NEUROLOGIC: Patient is awake, alert and oriented x3. Results 07/31/17 23:00 07/31/17 23:00 Cardiac Enzymes 07/31/17 07/31/17 08/01/17 Range/Units 23:00 23:00 06:01 AST 70 H (14-36) U/L CK-MB (CK-2) <0.2 (0.0-2.4) ng/mL Troponin I <0.012 <0.012 (0.000-0.034) ng/mL Coagulation 07/31/17 Range/Units 23:00 PT 9.6 (9.0-12.0) sec APTT 24.3 (22.0-30.0) sec CBC 07/31/17 Range/Units 23:00 WBC 9.3 (3.8-10.6) k/uL RBC 4.43 (3.80-5.40) m/uL Hgb 14.3 (11.4-16.0) gm/dL Hct 45.2 (34.0-46.0) % Plt Count 227 (150-450) k/uL Comprehensive Metabolic Panel 07/31/17 Range/Units 23:00 Sodium 140 (137-145) mmol/L Potassium 3.6 (3.5-5.1) mmol/L Chloride 106 (98-107) mmol/L Carbon Dioxide 18 L (22-30) mmol/L BUN 4 L (7-17) mg/dL Creatinine 0.60 (0.52-1.04) mg/dL Glucose 86 (74-99) mg/dL Calcium 9.7 (8.4-10.2) mg/dL AST 70 H (14-36) U/L ALT 32 (9-52) U/L Alkaline Phosphatase 72 (38-126) U/L Total Protein 7.3 (6.3-8.2) g/dL Albumin 4.5 (3.5-5.0) g/dL Current Medications Generic Name Dose Route Start Last Admin Trade Name Freq PRN Reason Stop Dose Admin Acetaminophen 650 mg 08/01/17 00:27 Tylenol Tab PO Q6HR PRN Mild Pain or Fever > 100.5 Intake and Output 07/31/17 08/01/17 08/01/17 22:59 06:59 14:59 Other: # Voids 1 Weight 67.132 kg 67.132 kg 07/31/17 23:00 07/31/17 23:00 Assessment and Plan Assessment: ASSESSMENT 1. Chest pain, atypical normal EKG and negative cardiac enzymes. 2. Chronic tobacco abuse PLAN Obtain exercise stress test to evaluate for exercise-induced ischemia. Obtain 2-D echocardiogram and Doppler study to assess cardiac structure and function. Increase activity and evaluate for ongoing symptoms of chest pain. If above diagnostic testing is negative the patient is stable from a cardiac perspective. She should follow-up with her primary care physician in one to 2 days. Thank you kindly for this consultation. Nurse Practitioner note has been reviewed, I agree with a documented findings and plan of care. Patient was seen and examined.
--- NOTE | 2017-08-02 13:28 | ECHOF ---
Referral Reason:chest pain MEASUREMENTS -------- HEIGHT: 160.0 cm WEIGHT: 62.6 kg BP: 115/70 RVIDd: 3.6 cm (< 3.3) IVSd: 1.0 cm (0.6 - 1.1) LVIDd: 4.4 cm (3.9 - 5.3) LVPWd: 1.2 cm (0.6 - 1.1) IVSs: 1.6 cm LVIDs: 2.9 cm LVPWs: 1.5 cm LA Diam: 3.0 cm (2.7 - 3.8) LAESV Index (A-L): 21.74 ml/m Ao Diam: 3.2 cm (2.0 - 3.7) AV Cusp: 2.2 cm (1.5 - 2.6) EPSS: 0.2 cm MV E Noah: 0.88 m/s MV DecT: 212 ms MV A Noah: 0.68 m/s MV E/A Ratio: 1.30 RAP: 5.00 mmHg RVSP: 29.15 mmHg MV EF SLOPE: 85.86 mm/s (70 - 150) MV EXCURSION: 2.09 cm (> 18.000) FINDINGS -------- Sinus rhythm. This was a technically good study. The left ventricular size is normal. There is borderline concentric left ventricular hypertrophy. Overall left ventricular systolic function is normal with, an EF between 60 - 65 %. The right ventricle is mildly enlarged. Normal LA size by volume 22+/-6 ml/m2. The right atrium is normal in size. The aortic valve is trileaflet and appears structurally normal. The mitral valve is normal. Mild tricuspid regurgitation present. Right ventricular systolic pressure is normal at < 35 mmHg. There is no pulmonic regurgitation present. The aortic root size is normal. Normal inferior vena cava with normal inspiratory collapse consistent with estimated right atrial pre ssure of 5 mmHg. There is no pericardial effusion. CONCLUSIONS -------- 1. Sinus rhythm. 2. This was a technically good study. 3. The left ventricular size is normal. 4. There is borderline concentric left ventricular hypertrophy. 5. Overall left ventricular systolic function is normal with, an EF between 60 - 65 %. 6. The right ventricle is mildly enlarged. 7. Normal LA size by volume 22+/-6 ml/m2. 8. The right atrium is normal in size. 9. The aortic valve is trileaflet and appears structurally normal. 10. The mitral valve is normal. 11. Mild tricuspid regurgitation present. 12. Right ventricular systolic pressure is normal at < 35 mmHg. 13. There is no pulmonic regurgitation present. 14. The aortic root size is normal. 15. Normal inferior vena cava with normal inspiratory collapse consistent with estimated right atrial pressure of 5 mmHg. 16. There is no pericardial effusion. RIG MECHANIC: AURA De La Fuente
== END 2017-08-01 14:59 | disposition home or self-care (01) ==
LOC: EC 22:30 → 3OBS 08-01 00:30
PROVIDERS: ADMIT Internal Medicine; ATTEND Internal Medicine
DX: R07.89 Other chest pain (principal); R06.02 Shortness of breath; R42 Dizziness and giddiness; R61 Generalized hyperhidrosis; R11.0 Nausea; Z88.8 Allergy status to other drugs, medicaments and biological substances; F17.200 Nicotine dependence, unspecified, uncomplicated; Z83.3 Family history of diabetes mellitus; Z80.3 Family history of malignant neoplasm of breast; Z82.49 Family history of ischemic heart disease and other diseases of the circulatory system
CPT/HCPCS: 99285; 36415; 93005; 93017; 93306; 80053; 82550; 82553; 83735; 84484 ×2; 85025; 85610; 85730; 81001; 84703; 71020; G0378

== ENCOUNTER 2018-04-19 01:38 | Emergency (ER) | payer OTHER ==
[2018-04-19 01:50] VITALS: BP 156/101; PULSE 96; TEMP 97.5
[2018-04-19 02:39] LABS: Appearance,Urine Clear (Clear); Bilirubin,Urine Negative (Negative); Blood,Urine Negative (Negative); Color,Urine Colorless; Glucose,Urine (UA) Negative (Negative); Ketones,Urine Negative (Negative); Leukocyte Esterase,Urine Negative (Negative); Nitrite,Urine Negative (Negative); Protein,Urine Negative (Negative); Specific Gravity,Urine 1.001 (1.001-1.035); Urobilinogen,Urine <2.0 mg/dL (<2.0)
[2018-04-19 02:54] LABS: Amphetamine Screen,Urine Not Detected (NotDetected); Barbiturate Screen,Urine Not Detected (NotDetected); Benzodiazepines Screen,Urine Not Detected (NotDetected); Cocaine Screen,Urine Not Detected (NotDetected); Methadone Screen, Urine Not Detected (NotDetected); Opiate Screen,Urine Not Detected (NotDetected); Oxycodone Screen, Urine Not Detected (NotDetected); Phencyclidine Screen,Urine Not Detected (NotDetected); Tricyclic Antidepressant,Urine Not Detected (NotDetected); Urn Cannabinoid Scrn Not Detected (NotDetected)
--- NOTE | 2018-04-19 03:39 | ED ---
Psych HPI <Jean Carlos Mckeon - Last Filed: 04/19/18 11:42> - General Source: patient Mode of arrival: EMS <Janneth Palomino - Last Filed: 04/21/18 05:51> - General Chief Complaint: Psychiatric Symptoms Stated Complaint: Mental Health Time Seen by Provider: 04/19/18 01:55 - History of Present Illness Initial Comments: 37-year-old female patient presents the emergency department today for evaluation of increased anxiety and suicidal ideation. Patient states that she has been increasingly anxious over the last month. Patient states that her boyfriend was put in detention approximately month ago and has been making threats pull-through male and over the phone. States that she did get up for some protection order however this has made her very anxious. Patient states she has been having thoughts of suicide. Patient states that she has had a plan to kill herself for a long time. Patient does not verbalize what her plan is. Patient does admit to drinking alcohol today. She denies any street drug use. Denies any hallucinations. States she is having difficulty eating and sleeping related to her anxiety. Denies taking any medications currently for this. Denies seeking outpatient counseling or therapy. Patient denies any recent rash , fever, chills, shortness breath, chest pain, abdominal pain, nausea, vomiting , diarrhea, constipation, back pain, numbness, tingling, dizziness, weakness, hematuria, dysuria, urinary urgency, urinary frequency, headache, visual changes , or any other complaints. (Janneth Palomino) - Related Data Home Medications Medication Instructions Recorded Confirmed No Known Home Medications 07/31/17 04/19/18 Allergies Allergy/AdvReac Type Severity Reaction Status Date / Time fluoxetine HCl [From Prozac] AdvReac Unknown Unknown Verified 04/19/18 01:49 Review of Systems ROS Other: All systems not noted in ROS Statement are negative. <Jean Carlos Mckeon - Last Filed: 04/19/18 11:42> ROS Other: All systems not noted in ROS Statement are negative. <Janneth Palomino - Last Filed: 04/21/18 05:51> ROS Statement: Those systems with pertinent positive or pertinent negative responses have been documented in the HPI. Past Medical History Past Medical History: No Reported History History of Any Multi-Drug Resistant Organisms: None Reported Past Surgical History: Cholecystectomy, Orthopedic Surgery Additional Past Surgical History / Comment(s): RIGHT shoulder 2009, Tubal ligation 2015. q Past Anesthesia/Blood Transfusion Reactions: No Reported Reaction Additional Past Anesthesia/Blood Transfusion Reaction / Comment(s): STATED " TOOK LONG TIME TO WAKE UP" Past Psychological History: Anxiety, Depression Smoking Status: Current every day smoker Past Alcohol Use History: Abuse, Daily Past Drug Use History: None Reported - Past Family History Father Family Medical History: Diabetes Mellitus Additional Family Medical History / Comment(s): mother breast cancer father diabetic Mother Family Medical History: Cancer Additional Family Medical History / Comment(s): BREAST CANCER <Janneth Palomino - Last Filed: 04/21/18 05:51> General Exam Limitations: no limitations General appearance: alert, in no apparent distress, other Eye exam: Present: normal appearance, PERRL, EOMI. Absent: scleral icterus, conjunctival injection, periorbital swelling ENT exam: Present: normal exam, normal oropharynx, mucous membranes moist Respiratory exam: Present: normal lung sounds bilaterally. Absent: respiratory distress, wheezes, rales, rhonchi, stridor Cardiovascular Exam: Present: regular rate, normal rhythm, normal heart sounds. Absent: systolic murmur, diastolic murmur, rubs, gallop, clicks GI/Abdominal exam: Present: soft, normal bowel sounds. Absent: distended, tenderness, guarding, rebound, rigid Neurological exam: Present: alert, oriented X3, CN II-XII intact Psychiatric exam: Present: depressed, anxious Skin exam: Present: warm, dry, intact, normal color. Absent: rash <Janneth Palomino - Last Filed: 04/21/18 05:51> Vital Signs 04/19/18 04/19/18 01:39 08:00 Temperature 97.5 F L Pulse Rate 96 Respiratory 18 16 Rate Blood Pressure 156/101 O2 Sat by Pulse 96 Oximetry Medical Decision Making <Jean Carlos Mckeon - Last Filed: 04/19/18 11:42> <Janneth Palomino - Last Filed: 04/21/18 05:51> - Medical Decision Making 37-year-old female patient presents to the emergency department today for evaluation of increased anxiety and suicidal ideation. Physical examination was unremarkable. Patient cannot be evaluated until sober. Care will be handed off to my attending Dr. Rasmussen. (Janneth Palomino) - Lab Data Lab Results 04/19/18 04/19/18 Range/Units 02:10 02:10 Urine Color Colorless Urine Appearance Clear (Clear) Urine pH 6.0 (5.0-8.0) Ur Specific [place] 1.001 (1.001-1.035) Urine Protein Negative (Negative) Urine Glucose (UA) Negative (Negative) Urine Ketones Negative (Negative) Urine Blood Negative (Negative) Urine Nitrite Negative (Negative) Urine Bilirubin Negative (Negative) Urine Urobilinogen <2.0 (<2.0) mg/dL Ur Leukocyte Esterase Negative (Negative) Urine HCG, Qual Not Detected (Not Detectd) Urine Opiates Screen Not Detected (NotDetected) Ur Oxycodone Screen Not Detected (NotDetected) Urine Methadone Screen Not Detected (NotDetected) Ur Propoxyphene Screen Not Detected (NotDetected) Ur Barbiturates Screen Not Detected (NotDetected) U Tricyclic Antidepress Not Detected (NotDetected) Ur Phencyclidine Scrn Not Detected (NotDetected) Ur Amphetamines Screen Not Detected (NotDetected) U Methamphetamines Scrn Not Detected (NotDetected) U Benzodiazepines Scrn Not Detected (NotDetected) Urine Cocaine Screen Not Detected (NotDetected) U Marijuana (THC) Screen Not Detected (NotDetected) Disposition Is patient prescribed a controlled substance at d/c from ED?: No Time of Disposition: 11:42 <Jean Carlos Mckeon - Last Filed: 04/19/18 11:42> <Janneth Palomino - Last Filed: 04/21/18 05:51> Clinical Impression: Situational depression, Alcohol abuse Disposition: HOME SELF-CARE Condition: Good Instructions: Abuse of Alcohol (ED) Additional Instructions: Patient should follow-up per EPS instructions Referrals: None,Stated [Primary Care Provider] - 1-2 days
[2018-04-19 08:27] VITALS: RESP 16
== END 2018-04-19 12:08 | disposition home or self-care (01) ==
LOC: EC 01:38
DX: F43.21 Adjustment disorder with depressed mood (principal); F10.10 Alcohol abuse, uncomplicated; R45.851 Suicidal ideations; F41.9 Anxiety disorder, unspecified; F17.200 Nicotine dependence, unspecified, uncomplicated; Z88.8 Allergy status to other drugs, medicaments and biological substances
CPT/HCPCS: 80306; 81003; 81025; 82075; 99285

== ENCOUNTER 2018-05-17 00:32 | Emergency (ER) | payer OTHER ==
[2018-05-17 00:41] VITALS: RESP 18
[2018-05-17] MEDS ORDERED: DIPH,PERTUS(ACELL)TETVAC-LF 0.5 ML VIAL IM ONE (01:35)
[2018-05-17 02:24] LABS: Amphetamine Screen,Urine Not Detected (NotDetected); Barbiturate Screen,Urine Not Detected (NotDetected); Benzodiazepines Screen,Urine Not Detected (NotDetected); Cocaine Screen,Urine Not Detected (NotDetected); Methadone Screen, Urine Not Detected (NotDetected); Opiate Screen,Urine Not Detected (NotDetected); Oxycodone Screen, Urine Not Detected (NotDetected); Phencyclidine Screen,Urine Not Detected (NotDetected); Tricyclic Antidepressant,Urine Not Detected (NotDetected); Urn Cannabinoid Scrn Not Detected (NotDetected)
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
[2018-05-17 06:45] VITALS: TEMP 98.2
[2018-05-17 12:46] VITALS: BP 139/78; PULSE 74
== END 2018-05-17 12:44 | disposition home or self-care (01) ==
LOC: EC 00:32
DX: F43.21 Adjustment disorder with depressed mood (principal); F10.120 Alcohol abuse with intoxication, uncomplicated; S61.512A Laceration without foreign body of left wrist, initial encounter; R45.850 Homicidal ideations; F41.9 Anxiety disorder, unspecified; F17.200 Nicotine dependence, unspecified, uncomplicated; Z23 Encounter for immunization; Z88.8 Allergy status to other drugs, medicaments and biological substances; Y28.8XXA Contact with other sharp object, undetermined intent, initial encounter
CPT/HCPCS: 80306; 82075; 90471; 90715; 99285

== ENCOUNTER 2018-05-23 23:33 | Emergency (ER) | payer OTHER ==
[2018-05-24] VITALS: RESP 18
[2018-05-24] MEDS ORDERED: DIPH,PERTUS(ACELL)TETVAC-LF 0.5 ML VIAL IM ONE (00:23)
[2018-05-24 00:51] LABS: Basophils % (A) 1 %; Eosinophils # (A) 0.1 k/uL (0-0.7); Eosinophils % (A) 1 %; HGB 14.4 gm/dL (11.4-16.0); Lymphocytes # (A) 1.7 k/uL (1.0-4.8); Lymphocytes % (A) 26 %; MCH 32.8 pg (25.0-35.0); MCV 102.5 fL (80.0-100.0); Mean Platelet Volume 6.9; Monocytes # (A) 0.3 k/uL (0-1.0); Monocytes % (A) 5 %; Neutrophils # (A) 4.4 k/uL (1.3-7.7); Neutrophils % (A) 66 %; Platelet Count 201 k/uL (150-450); RBC 4.39 m/uL (3.80-5.40); RDW 12.1 % (11.5-15.5); WBC 6.7 k/uL (3.8-10.6)
[2018-05-24 00:59] LABS: Anion Gap 11 mmol/L; Blood Urea Nitrogen 3 mg/dL (7-17); Calcium 9.4 mg/dL (8.4-10.2); Carbon Dioxide 20 mmol/L (22-30); Chloride 106 mmol/L (98-107); Glucose 90 mg/dL (74-99); Sodium 137 mmol/L (137-145)
[2018-05-24 01:05] LABS: Amphetamine Screen,Urine Not Detected (NotDetected); Barbiturate Screen,Urine Not Detected (NotDetected); Benzodiazepines Screen,Urine Not Detected (NotDetected); Cocaine Screen,Urine Not Detected (NotDetected); Methadone Screen, Urine Not Detected (NotDetected); Opiate Screen,Urine Not Detected (NotDetected); Oxycodone Screen, Urine Not Detected (NotDetected); Phencyclidine Screen,Urine Not Detected (NotDetected); Tricyclic Antidepressant,Urine Not Detected (NotDetected); Urn Cannabinoid Scrn Not Detected (NotDetected)
[2018-05-24] MEDS ORDERED: LIDOCAINE 1% INJ 10MG/ML (20 ML MDV) SQ STA (06:48)
--- NOTE | 2018-05-24 06:50 | ED ---
Psych HPI - General Source: patient, police, EMS Mode of arrival: EMS - History of Present Illness MD Complaint: suicidal ideation, feels depressed -: days(s) Associated Psychiatric Symptoms: depression, suicidal ideation Quality: constant, getting worse Context: significant life stressor <Geoffrey Rasmussen - Last Filed: 05/24/18 07:19> <Jean Carlos Winters - Last Filed: 05/24/18 10:51> - General Chief Complaint: Psychiatric Symptoms Stated Complaint: Mental Health Time Seen by Provider: 05/24/18 00:23 - Related Data Home Medications Medication Instructions Recorded Confirmed No Known Home Medications 07/31/17 05/24/18 Allergies Allergy/AdvReac Type Severity Reaction Status Date / Time fluoxetine HCl [From Prozac] AdvReac Unknown Unknown Verified 05/24/18 00:10 Review of Systems ROS Other: All systems not noted in ROS Statement are negative. Limitations: ROS unobtainable due to patients medical condition <Geoffrey Rasmussen - Last Filed: 05/24/18 07:19> ROS Other: All systems not noted in ROS Statement are negative. <Jean Carlos Winters - Last Filed: 05/24/18 10:51> ROS Statement: Those systems with pertinent positive or pertinent negative responses have been documented in the HPI. Past Medical History Past Medical History: No Reported History History of Any Multi-Drug Resistant Organisms: None Reported Past Surgical History: Cholecystectomy, Orthopedic Surgery Additional Past Surgical History / Comment(s): RIGHT shoulder 2009, Tubal ligation 2015. q Past Anesthesia/Blood Transfusion Reactions: No Reported Reaction Additional Past Anesthesia/Blood Transfusion Reaction / Comment(s): STATED " TOOK LONG TIME TO WAKE UP" Past Psychological History: Anxiety, Depression Smoking Status: Current every day smoker Past Alcohol Use History: Abuse, Daily Past Drug Use History: None Reported - Past Family History Father Family Medical History: Diabetes Mellitus Additional Family Medical History / Comment(s): mother breast cancer father diabetic Mother Family Medical History: Cancer Additional Family Medical History / Comment(s): BREAST CANCER <ZeyadGeoffrey bolden - Last Filed: 05/24/18 07:19> General Exam Limitations: no limitations General appearance: alert, in no apparent distress Head exam: Present: atraumatic, normocephalic Respiratory exam: Present: normal lung sounds bilaterally. Absent: respiratory distress, wheezes, rales, rhonchi, stridor Cardiovascular Exam: Present: regular rate, normal rhythm, normal heart sounds. Absent: systolic murmur, diastolic murmur, rubs, gallop GI/Abdominal exam: Present: soft. Absent: distended, tenderness, guarding, rebound Extremities exam: Present: normal inspection, normal capillary refill. Absent: pedal edema, calf tenderness Back exam: Present: normal inspection. Absent: CVA tenderness (R), CVA tenderness (L) Neurological exam: Present: alert Psychiatric exam: Present: depressed, flat affect, suicidal ideation. Absent: agitated, anxious, manic, homicidal ideation Skin exam: Present: warm, dry, intact, normal color. Absent: rash <Geoffrey Rasmussen - Last Filed: 05/24/18 07:19> Vital Signs 05/23/18 05/24/18 23:37 08:40 Temperature 97.4 F L 97.4 F L Pulse Rate 86 78 Respiratory 18 18 Rate Blood Pressure 146/91 118/70 O2 Sat by Pulse 98 100 Oximetry Procedures - Laceration Laceration #1 Consent Obtained: verbal consent Indication: laceration Site: upper extremity Description: linear Depth: simple, single layer Anesthetic Used: lidocaine 1% Anesthesia Technique: local infiltration Type of Sutures: nylon Size of Sutures: 4-0 Number of Sutures: 3 Technique: simple, interrupted Patient Tolerated Procedure: well, no complications <Geoffrey Rasmussen - Last Filed: 05/24/18 07:19> Medical Decision Making - Lab Data Result diagrams: 05/24/18 00:30 05/24/18 00:30 <Geoffrey Rasmussen - Last Filed: 05/24/18 07:19> - Lab Data Result diagrams: 05/24/18 00:30 05/24/18 00:30 <Jean Carlos Winters - Last Filed: 05/24/18 10:51> - Medical Decision Making 37 female May medically clear positive alcohol was seen and evaluated with psychiatry, patient given discharge planning can be discharged home (Jean Carlos Winters) - Lab Data Lab Results 05/24/18 05/24/18 05/24/18 Range/Units 00:01 00:01 00:30 WBC (3.8-10.6) k/uL RBC (3.80-5.40) m/uL Hgb (11.4-16.0) gm/dL Hct (34.0-46.0) % MCV (80.0-100.0) fL MCH (25.0-35.0) pg MCHC (31.0-37.0) g/dL RDW (11.5-15.5) % Plt Count (150-450) k/uL Neutrophils % % Lymphocytes % % Monocytes % % Eosinophils % % Basophils % % Neutrophils # (1.3-7.7) k/uL Lymphocytes # (1.0-4.8) k/uL Monocytes # (0-1.0) k/uL Eosinophils # (0-0.7) k/uL Basophils # (0-0.2) k/uL Sodium 137 (137-145) mmol/L Potassium 4.0 (3.5-5.1) mmol/L Chloride 106 (98-107) mmol/L Carbon Dioxide 20 L (22-30) mmol/L Anion Gap 11 mmol/L BUN 3 L (7-17) mg/dL Creatinine 0.50 L (0.52-1.04) mg/dL Est GFR (CKD-EPI)AfAm >90 (>60 ml/min/1.73 sqM) Est GFR (CKD-EPI)NonAf >90 (>60 ml/min/1.73 sqM) Glucose 90 (74-99) mg/dL Calcium 9.4 (8.4-10.2) mg/dL Urine HCG, Qual Not Detected (Not Detectd) Urine Opiates Screen Not Detected (NotDetected) Ur Oxycodone Screen Not Detected (NotDetected) Urine Methadone Screen Not Detected (NotDetected) Ur Propoxyphene Screen Not Detected (NotDetected) Ur Barbiturates Screen Not Detected (NotDetected) U Tricyclic Antidepress Not Detected (NotDetected) Ur Phencyclidine Scrn Not Detected (NotDetected) Ur Amphetamines Screen Not Detected (NotDetected) U Methamphetamines Scrn Not Detected (NotDetected) U Benzodiazepines Scrn Not Detected (NotDetected) Urine Cocaine Screen Not Detected (NotDetected) U Marijuana (THC) Screen Not Detected (NotDetected) 05/24/18 Range/Units 00:30 WBC 6.7 (3.8-10.6) k/uL RBC 4.39 (3.80-5.40) m/uL Hgb 14.4 (11.4-16.0) gm/dL Hct 45.0 (34.0-46.0) % MCV 102.5 H (80.0-100.0) fL MCH 32.8 (25.0-35.0) pg MCHC 32.0 (31.0-37.0) g/dL RDW 12.1 (11.5-15.5) % Plt Count 201 (150-450) k/uL Neutrophils % 66 % Lymphocytes % 26 % Monocytes % 5 % Eosinophils % 1 % Basophils % 1 % Neutrophils # 4.4 (1.3-7.7) k/uL Lymphocytes # 1.7 (1.0-4.8) k/uL Monocytes # 0.3 (0-1.0) k/uL Eosinophils # 0.1 (0-0.7) k/uL Basophils # 0.0 (0-0.2) k/uL Sodium (137-145) mmol/L Potassium (3.5-5.1) mmol/L Chloride (98-107) mmol/L Carbon Dioxide (22-30) mmol/L Anion Gap mmol/L BUN (7-17) mg/dL Creatinine (0.52-1.04) mg/dL Est GFR (CKD-EPI)AfAm (>60 ml/min/1.73 sqM) Est GFR (CKD-EPI)NonAf (>60 ml/min/1.73 sqM) Glucose (74-99) mg/dL Calcium (8.4-10.2) mg/dL Urine HCG, Qual (Not Detectd) Urine Opiates Screen (NotDetected) Ur Oxycodone Screen (NotDetected) Urine Methadone Screen (NotDetected) Ur Propoxyphene Screen (NotDetected) Ur Barbiturates Screen (NotDetected) U Tricyclic Antidepress (NotDetected) Ur Phencyclidine Scrn (NotDetected) Ur Amphetamines Screen (NotDetected) U Methamphetamines Scrn (NotDetected) U Benzodiazepines Scrn (NotDetected) Urine Cocaine Screen (NotDetected) U Marijuana (THC) Screen (NotDetected) Disposition <Trachy,Geoffrey - Last Filed: 05/24/18 07:19> Is patient prescribed a controlled substance at d/c from ED?: No <Jean Carlos Winters - Last Filed: 05/24/18 10:51> Clinical Impression: Depression, Alcohol abuse Disposition: HOME SELF-CARE Condition: Good Instructions: Depression (ED) Referrals: None,Stated [Primary Care Provider] - 1-2 days
[2018-05-24 10:54] VITALS: BP 130/70; PULSE 84; TEMP 98.3
== END 2018-05-24 11:06 | disposition home or self-care (01) ==
LOC: EC 23:33
DX: F32.9 Major depressive disorder, single episode, unspecified (principal); F10.10 Alcohol abuse, uncomplicated; F17.200 Nicotine dependence, unspecified, uncomplicated; Z88.8 Allergy status to other drugs, medicaments and biological substances; X78.9XXA Intentional self-harm by unspecified sharp object, initial encounter; Y92.009 Unspecified place in unspecified non-institutional (private) residence as the place of occurrence of the external cause
CPT/HCPCS: 36415; 80048; 85025; 81025; 80306; 99285; 12002; J2001

== ENCOUNTER 2018-06-06 02:03 | Emergency (ER) | payer OTHER ==
[2018-06-06 02:13] VITALS: RESP 18
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
[2018-06-06 05:20] LABS: Amphetamine Screen,Urine Not Detected (NotDetected); Barbiturate Screen,Urine Not Detected (NotDetected); Benzodiazepines Screen,Urine Not Detected (NotDetected); Cocaine Screen,Urine Not Detected (NotDetected); Methadone Screen, Urine Not Detected (NotDetected); Opiate Screen,Urine Not Detected (NotDetected); Oxycodone Screen, Urine Not Detected (NotDetected); Phencyclidine Screen,Urine Not Detected (NotDetected); Tricyclic Antidepressant,Urine Not Detected (NotDetected); Urn Cannabinoid Scrn Not Detected (NotDetected)
[2018-06-06 12:57] VITALS: BP 117/77; PULSE 59; TEMP 99.1
== END 2018-06-06 12:55 | disposition home or self-care (01) ==
LOC: EC 02:03
DX: F10.129 Alcohol abuse with intoxication, unspecified (principal); F22 Delusional disorders; S61.511A Laceration without foreign body of right wrist, initial encounter; R45.851 Suicidal ideations; F17.200 Nicotine dependence, unspecified, uncomplicated; Z88.8 Allergy status to other drugs, medicaments and biological substances; X78.9XXA Intentional self-harm by unspecified sharp object, initial encounter
CPT/HCPCS: 80306; 82075; 99285

== ENCOUNTER 2018-06-07 01:01 | Emergency (ER) | payer OTHER ==
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
[2018-06-07 03:32] VITALS: RESP 16
[2018-06-07 03:45] LABS: Appearance,Urine Clear (Clear); Bilirubin,Urine Negative (Negative); Blood,Urine Negative (Negative); Color,Urine Light Yellow; Glucose,Urine (UA) Negative (Negative); Ketones,Urine Negative (Negative); Leukocyte Esterase,Urine Negative (Negative); Nitrite,Urine Negative (Negative); Protein,Urine Negative (Negative); Specific Gravity,Urine 1.002 (1.001-1.035); Urobilinogen,Urine <2.0 mg/dL (<2.0)
[2018-06-07 04:00] LABS: Amphetamine Screen,Urine Not Detected (NotDetected); Barbiturate Screen,Urine Not Detected (NotDetected); Benzodiazepines Screen,Urine Not Detected (NotDetected); Cocaine Screen,Urine Not Detected (NotDetected); Methadone Screen, Urine Not Detected (NotDetected); Opiate Screen,Urine Not Detected (NotDetected); Oxycodone Screen, Urine Not Detected (NotDetected); Phencyclidine Screen,Urine Not Detected (NotDetected); Tricyclic Antidepressant,Urine Not Detected (NotDetected); Urn Cannabinoid Scrn Not Detected (NotDetected)
[2018-06-07 10:23] VITALS: BP 106/64; PULSE 64; TEMP 98.3
== END 2018-06-07 10:48 | disposition home or self-care (01) ==
LOC: EC 01:01
DX: F10.129 Alcohol abuse with intoxication, unspecified (principal); F17.200 Nicotine dependence, unspecified, uncomplicated; Z88.8 Allergy status to other drugs, medicaments and biological substances
CPT/HCPCS: 80306; 81003; 82075; 99284

== ENCOUNTER 2022-05-04 05:16 | Emergency (ER) | payer OTHER ==
[2022-05-04 05:36] VITALS: BP 147/95; PULSE 89; RESP 22; TEMP 97.5
[2022-05-04 06:20] LABS: Amphetamine Screen,Urine Not Detected (NotDetected); Barbiturate Screen,Urine Not Detected (NotDetected); Benzodiazepines Screen,Urine Not Detected (NotDetected); Cocaine Screen,Urine Not Detected (NotDetected); Methadone Screen, Urine Not Detected (NotDetected); Opiate Screen,Urine Not Detected (NotDetected); Oxycodone Screen, Urine Not Detected (NotDetected); Phencyclidine Screen,Urine Not Detected (NotDetected); Tricyclic Antidepressant,Urine Not Detected (NotDetected); Urn Cannabinoid Scrn Detected (NotDetected)
== END 2022-05-04 07:29 | disposition left against medical advice (07) ==
LOC: EC 05:16
DX: Z53.21 Procedure and treatment not carried out due to patient leaving prior to being seen by health care provider (principal)
CPT/HCPCS: 80306; 99499

== ENCOUNTER 2022-08-16 00:41 | Inpatient (IN) | payer MEDICAID, OTHER ==
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
[2022-08-16] MEDS ORDERED: HALOPERIDOL LACTATE 5 MG/ML 1 ML VIAL IM PRN (07:29)
[2022-08-16] MEDS ORDERED: LORazepam 1 MG TAB PO PRN (07:29)
[2022-08-16] MEDS ORDERED: MAG HYDROX/AL HYDROX/SIMETH 30 ML CUP PO PRN (07:29)
[2022-08-16] MEDS ORDERED: MAGNESIUM HYDROXIDE 2,400 MG/10 ML CUP PO PRN (07:29)
[2022-08-16] MEDS ORDERED: ACETAMINOPHEN TAB 325 MG TAB PO PRN (07:29)
[2022-08-16] MEDS ORDERED: LORazepam 2 MG/ML INJ IM PRN (07:31)
[2022-08-16] MEDS ORDERED: haloperidoL 5 MG TAB PO PRN (07:32)
[2022-08-16 08:17] LABS: Amphetamine Screen,Urine Not Detected (NotDetected); Barbiturate Screen,Urine Not Detected (NotDetected); Benzodiazepines Screen,Urine Not Detected (NotDetected); Cocaine Screen,Urine Not Detected (NotDetected); Methadone Screen, Urine Not Detected (NotDetected); Opiate Screen,Urine Not Detected (NotDetected); Oxycodone Screen, Urine Not Detected (NotDetected); Phencyclidine Screen,Urine Not Detected (NotDetected); Tricyclic Antidepressant,Urine Not Detected (NotDetected); Urn Cannabinoid Scrn Not Detected (NotDetected)
[2022-08-16 08:36] LABS: Amorphous Sediment,Urine Rare /hpf; Appearance,Urine Cloudy (Clear); Bilirubin,Urine Negative (Negative); Blood,Urine Negative (Negative); Color,Urine Colorless; Glucose,Urine (UA) Negative (Negative); Ketones,Urine Negative (Negative); Leukocyte Esterase,Urine Negative (Negative); Nitrite,Urine Negative (Negative); Protein,Urine Negative (Negative); RBC,Urine <1 /hpf (0-5); Specific Gravity,Urine 1.002 (1.001-1.035); Squamous Epithelial Cell,Urine 1 /hpf (0-4); Urobilinogen,Urine <2.0 mg/dL (<2.0); WBC,Urine <1 /hpf (0-5)
[2022-08-16] MEDS: NICOTINE 14MG/24HR PATCH TRANSDERM SCH (10:23)
[2022-08-16] MEDS: OLANZapine 5 MG TAB PO SCH ×2 (12:05→20:52)
[2022-08-16] MEDS: VENLAFAXINE HCL ER 150 MG CAP PO SCH (12:05)
--- NOTE | 2022-08-16 14:55 | P.MDCNMH ---
History of Present Illness H&P Date: 08/16/22 Chief Complaint: med management Patient is a 41-year-old female with no significant medical history presenting for depression. She denies any chest pain, shortness of breath, palpitations, lightheadedness, abdominal pain, nausea, vomiting, diarrhea, constipation, or urinary complaints. Patient smokes about 1 pack per day, drinks 12 pack of beer per day, and smokes marijuana. In the ED, her vital signs have been within normal limits. Laboratory workup pending. Patient seen and examined at bedside. Pertinent positives and negatives as discussed in HPI, a complete review of systems was performed and all other systems are negative. Vital signs reviewed General: nontoxic, no distress, appears at stated age Derm: warm, dry Head: atraumatic, normocephalic, symmetric Eyes: EOMI, no lid lag, anicteric sclera, pupils equal round reactive to light ENT: Nose and ears atraumatic Neck: No thyromegaly, supple Mouth: no lip lesion, mucus membranes moist Cardiovascular: S1S2 reg, no murmur, no edema Lungs: clear to auscultation bilateral, no rhonchi, no rales, no wheeze, no accessory muscle use Abdominal: soft, nontender to palpation, no guarding, no appreciable organomegaly Ext: no gross muscle atrophy, muscle strength muscle strength 5 out of 5 in all 4 extremities, no contractures Neuro: CN II-XII grossly intact Psych: Alert, oriented, appropriate affect Assessment/Plan: Depression -Management per psychiatry Alcohol dependence -On [facility] protocol -Ativan as needed -Thiamine and folic acid Nicotine dependence -Counseled regarding smoking cessation -Nicotine patch No other chronic medical problems. Lab work pending. Thank you for allowing us to participate in the care of this pleasant patient. Do not hesitate to contact us with questions. Someone can be reached from the [facility] hospitalist group all hours of the day at [phone] or via [employer]. Past Medical History Past Medical History: No Reported History History of Any Multi-Drug Resistant Organisms: None Reported Past Surgical History: Cholecystectomy, Orthopedic Surgery Additional Past Surgical History / Comment(s): RIGHT shoulder 2008, Tubal ligation 2014, Past Anesthesia/Blood Transfusion Reactions: No Reported Reaction Additional Past Anesthesia/Blood Transfusion Reaction / Comment(s): STATED "TOOK LONG TIME TO WAKE UP" Past Psychological History: Anxiety, Depression Smoking Status: Current every day smoker Past Alcohol Use History: Abuse, Daily Past Drug Use History: Marijuana - Past Family History Father Family Medical History: Diabetes Mellitus Additional Family Medical History / Comment(s): mother breast cancer father diabetic Mother Family Medical History: Cancer Additional Family Medical History / Comment(s): BREAST CANCER Medications and Allergies Home Medications Medication Instructions Recorded Confirmed Type Venlafaxine HCl [Effexor XR] 75 mg PO DAILY 08/16/22 08/16/22 History Allergies Allergy/AdvReac Type Severity Reaction Status Date / Time fluoxetine HCl [From Prozac] AdvReac Unknown Paranoia Verified 08/16/22 10:01 paroxetine [From Paxil] AdvReac all Verified 08/16/22 10:01 possible side effects listed Physical Exam Vitals: Vital Signs Temp Pulse Resp BP Pulse Ox 08/16/22 09:44 84 18 126/78 99 08/16/22 00:58 98 F 89 18 144/93 99 Intake and Output 08/15/22 08/16/22 08/16/22 22:59 06:59 14:59 Other: Weight 63.503 kg 68.492 kg Cranial Nerve Examination - Cranial Nerves Cranial Nerve II- Optic: Intact Cranial Nerve III- Oculomotor: Intact Cranial Nerve IV- Trochlear: Intact Cranial Nerve V- Trigeminal: Intact Cranial Nerve - Abducens: Intact Cranial Nerve VII- Facial: Intact Cranial Nerve VIII- Auditory: Intact Cranial Nerve IX- Glossopharyngeal: Intact Cranial Nerve X- Vagus: Intact Cranial Nerve XI- Accessory: Intact Cranial Nerve XII- Hypoglossal: Intact Results Labs: Abnormal Lab Results - Last 24 Hours (Table) 08/16/22 Range/Units 07:38 Urine Appearance Cloudy H (Clear) Amorphous Sediment Rare H (None) /hpf
[2022-08-16] MEDS: FOLIC ACID 1 MG TAB PO SCH (15:46)
[2022-08-16] MEDS: THIAMINE 100 MG TAB PO SCH (15:46)
[2022-08-16] MEDS: LORazepam 1 MG TAB PO PRN (20:55)
[2022-08-16] MEDS ORDERED: traZODone HCL 50 MG TAB PO SCH (21:00)
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
[2022-08-17 07:59] LABS: Basophils % (A) 1 %; Eosinophils # (A) 0.1 k/uL (0-0.7); Eosinophils % (A) 3 %; HCT 44.2 % (34.0-46.0); HGB 14.3 gm/dL (11.4-16.0); Lymphocytes # (A) 1.4 k/uL (1.0-4.8); Lymphocytes % (A) 27 %; MCH 34.1 pg (25.0-35.0); MCHC 32.3 g/dL (31.0-37.0); MCV 105.6 fL (80.0-100.0); Macrocytosis Slight; Mean Platelet Volume 7.6; Monocytes # (A) 0.3 k/uL (0-1.0); Monocytes % (A) 5 %; Neutrophils # (A) 3.2 k/uL (1.3-7.7); Neutrophils % (A) 62 %; Platelet Count 279 k/uL (150-450); RBC 4.18 m/uL (3.80-5.40); RDW 12.1 % (11.5-15.5); WBC 5.2 k/uL (3.8-10.6)
[2022-08-17 08:17] LABS: ALT 26 U/L (4-34); AST 32 U/L (14-36); African American GFR (CKD) >90 (>60 ml/min/1.73 sqM); Albumin 3.7 g/dL (3.5-5.0); Alkaline Phosphatase 80 U/L (38-126); Anion Gap 4 mmol/L; Bilirubin, Delta 0.3 mg/dL (0.0-0.2); Bilirubin,Unconjugated 0.4 mg/dL (0.0-1.1); Blood Urea Nitrogen 8 mg/dL (7-17); Calcium 9.8 mg/dL (8.4-10.2); Carbon Dioxide 24 mmol/L (22-30); Chloride 112 mmol/L (98-107); Glucose 89 mg/dL (74-99); Non-African American GFR(CKD) >90 (>60 ml/min/1.73 sqM); Potassium 4.5 mmol/L (3.5-5.1); Sodium 140 mmol/L (137-145); Total Bilirubin 0.7 mg/dL (0.2-1.3); Total Protein 6.4 g/dL (6.3-8.2)
[2022-08-17] MEDS: NICOTINE 14MG/24HR PATCH TRANSDERM SCH (08:51)
[2022-08-17] MEDS: THIAMINE 100 MG TAB PO SCH (08:51)
[2022-08-17] MEDS: VENLAFAXINE HCL ER 150 MG CAP PO SCH (08:51)
[2022-08-17] MEDS: OLANZapine 5 MG TAB PO SCH ×2 (08:51→20:33)
[2022-08-17] MEDS: FOLIC ACID 1 MG TAB PO SCH (08:51)
[2022-08-17] MEDS: LORazepam 1 MG TAB PO PRN ×2 (08:53→20:32)
--- NOTE | 2022-08-17 11:51 | P.PN ---
Progress Note - Text Progress Note Date: 08/17/22 (.) Interval History: Patient was seen resting in bed and was directable and agreeable to speak with the casualty underwriter in her room. Currently, the patient is not reporting any suicidal or homicidal ideation, intention, and/or plan. She does report that she feels extremely tired and has a lack of motivation or will to live. She rates her depression 8 out of 10 in severity with 10 being very severe. She has been adherent with her medication and is not endorsing any significant side effects at this time. She does acknowledge that she has been drinking approximately 12 beers per night leading up to this admission. She is not endorsing any significant withdrawal symptoms today. She does express that she has back and spine issues and is supposed to receive and Remeron in the near future. She reports no auditory or visual hallucinations. She denies any paranoia or other delusions. Mental Status Exam: General Appearance: Patient appears to be older than stated age is alert, directable, and cooperative. Behavior: Is calmly lying down in bed without any agitated behavior. Eye contact is poor. Speech: Patient's speech is fluent and nonpressured. Mood/Affect: Mood is improving mildly, affect is congruent and blunted. Suicidality/Homicidality: Patient denies having any suicidal or homicidal ideation intent or plan. Perceptions: Patient denies any visual hallucinations and denies any auditory hallucinations Though content/process: Does express some dysphoria. No delusional thought content is endorsed. Memory and concentration: AOX3, grossly intact for the purposes of this session Judgment and insight: Improving mildly Vital Signs Temp 98.6 F 08/16/22 15:37 Pulse 120 H 08/17/22 08:00 Resp 18 08/16/22 15:37 BP 141/93 08/17/22 08:00 Pulse Ox 99 08/16/22 15:37 FiO2 Intake & Output 08/16/22 08/17/22 08/17/22 18:59 06:59 18:59 Weight 68.492 kg Laboratory Results - Last 24 Hours 08/17/22 08/17/22 08/17/22 07:14 07:14 07:14 WBC 5.2 RBC 4.18 Hgb 14.3 Hct 44.2 MCV 105.6 H MCH 34.1 MCHC 32.3 RDW 12.1 Plt Count 279 MPV 7.6 Neutrophils % 62 Lymphocytes % 27 Monocytes % 5 Eosinophils % 3 Basophils % 1 Neutrophils # 3.2 Lymphocytes # 1.4 Monocytes # 0.3 Eosinophils # 0.1 Basophils # 0.0 Macrocytosis Slight Sodium 140 Potassium 4.5 Chloride 112 H Carbon Dioxide 24 Anion Gap 4 BUN 8 Creatinine 0.66 Est GFR (CKD-EPI)AfAm >90 Est GFR (CKD-EPI)NonAf >[address] Glu mg/dL 90 Hemoglobin A1c 4.8 Calcium 9.8 Total Bilirubin 0.7 Conjugated Bilirubin 0.0 Unconjugated Bilirubin 0.4 Delta Bilirubin 0.3 H AST 32 ALT 26 Alkaline Phosphatase 80 Total Protein 6.4 Albumin 3.7 TSH 1.970 Assessment Major depressive disorder, recurrent, severe Alcohol use disorder Cannabis use disorder Posttraumatic stress disorder tobacco use disorder Plan: -Patient continues to meet criteria for inpatient psychiatric admission for symptom stabilization and safety. Patient has signed adult voluntary form and medication consent and was placed in patient's chart. -Medications: Zyprexa 5 mg by mouth twice a day for mood augmentation Effexor XR 150 mg by mouth daily for depression/anxiety Increase trazodone to 100 mg by mouth at bedtime for insomnia -When necessary Ativan and Haldol for agitation/aggression. -NRT - nicotine patch -SW on board for discharge planning. Encouraged the patient to participate in milieu.
[2022-08-17 14:44] LABS: Chol/HDL Ratio 1.65 Ratio; LDL Cholesterol,Calculated 55.6 mg/dL (0.0-131.0); VLDL Calculation 11.38 mg/dL (5.00-40.00)
[2022-08-17] MEDS: traZODone HCL 100 MG TAB PO SCH (20:33)
[2022-08-18 07:08] VITALS: RESP 14
[2022-08-18] MEDS: VENLAFAXINE HCL ER 150 MG CAP PO SCH (09:33)
[2022-08-18] MEDS: THIAMINE 100 MG TAB PO SCH (09:33)
[2022-08-18] MEDS: OLANZapine 5 MG TAB PO SCH ×2 (09:33→20:20)
[2022-08-18] MEDS: FOLIC ACID 1 MG TAB PO SCH (09:33)
[2022-08-18] MEDS: NICOTINE 14MG/24HR PATCH TRANSDERM SCH (09:34)
--- NOTE | 2022-08-18 13:06 | P.PN ---
Progress Note - Text Progress Note Date: 08/18/22 Interval History: Patient was seen resting in bed and was directable and agreeable to speak with the law writer in the office. Currently, the patient is not reporting any suicidal or homicidal ideation, intention, and/or plan. She reports no auditory or visual hallucinations. She denies any paranoia or other delusions. She reports that she was able to sleep well and has better energy today. She rates her depression 3 out of 10 in severity with 10 being very severe. She expresses that she is not experiencing any significant withdrawal. She remains future and goal oriented. However, the patient appears to be pre-contemplative in regards to alcohol cessation. Mental Status Exam: General Appearance: Patient appears to be older than stated age is alert, directable, and cooperative. Behavior: Patient is calmly seated upright in her chair without any agitated behavior. Eye contact is fair. Speech: Patient's speech is fluent and nonpressured. Mood/Affect: Mood is improving mildly, affect is congruent and euthymic. Suicidality/Homicidality: Patient denies having any suicidal or homicidal ideation intent or plan. Perceptions: Patient denies any visual hallucinations and denies any auditory hallucinations Though content/process: No delusional thought content is endorsed. Thought process is linear and logical in short conversation Memory and concentration: AOX3, grossly intact for the purposes of this session Judgment and insight: Improving mildly Vital Signs Temp 98.4 F 08/18/22 06:49 Pulse 70 08/18/22 06:49 Resp 14 08/18/22 06:49 BP 127/70 08/18/22 06:49 Pulse Ox 99 08/16/22 15:37 FiO2 Laboratory Results - Last 24 Hours 08/17/22 07:14 Triglycerides 56.90 Cholesterol 170.00 LDL Cholesterol, Calc 55.6 VLDL Cholesterol, Calc 11.38 HDL Cholesterol 103.00 H Cholesterol/HDL Ratio 1.65 Assessment Major depressive disorder, recurrent, severe Alcohol use disorder Cannabis use disorder Posttraumatic stress disorder tobacco use disorder Plan: -Patient continues to meet criteria for inpatient psychiatric admission for symptom stabilization and safety. Patient has signed adult voluntary form and medication consent and was placed in patient's chart. -Medications: Zyprexa 5 mg by mouth twice a day for mood augmentation Effexor XR 150 mg by mouth daily for depression/anxiety Continue trazodone 100 mg by mouth at bedtime for insomnia -When necessary Ativan and Haldol for agitation/aggression. -NRT - nicotine patch -SW on board for discharge planning. Encouraged the patient to participate in milieu.
[2022-08-18] MEDS: LORazepam 1 MG TAB PO PRN (20:20)
[2022-08-18] MEDS: traZODone HCL 100 MG TAB PO SCH (20:20)
[2022-08-19 07:25] VITALS: BP 115/66; PULSE 77; TEMP 97.5
[2022-08-19] MEDS: OLANZapine 5 MG TAB PO SCH (09:02)
[2022-08-19] MEDS: VENLAFAXINE HCL ER 150 MG CAP PO SCH (09:02)
[2022-08-19] MEDS: FOLIC ACID 1 MG TAB PO SCH (09:03)
[2022-08-19] MEDS: NICOTINE 14MG/24HR PATCH TRANSDERM SCH (09:03)
[2022-08-19] MEDS: THIAMINE 100 MG TAB PO SCH (09:03)
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
== END 2022-08-19 11:36 | disposition home or self-care (01) | DRG 885 ==
LOC: EC 00:41 → 3MHU 07:28
PROVIDERS: ADMIT Psychiatry & Neurology Psychiatry; ATTEND Psychiatry & Neurology Psychiatry
DX: F33.2 Major depressive disorder, recurrent severe without psychotic features (principal); F10.239 Alcohol dependence with withdrawal, unspecified; R45.851 Suicidal ideations; D75.89 Other specified diseases of blood and blood-forming organs; Z20.822 Contact with and (suspected) exposure to COVID-19; E11.9 Type 2 diabetes mellitus without complications; I25.10 Atherosclerotic heart disease of native coronary artery without angina pectoris; F10.229 Alcohol dependence with intoxication, unspecified; J44.9 Chronic obstructive pulmonary disease, unspecified; F12.20 Cannabis dependence, uncomplicated; F17.210 Nicotine dependence, cigarettes, uncomplicated; Z71.6 Tobacco abuse counseling; Z71.51 Drug abuse counseling and surveillance of drug abuser; Z71.41 Alcohol abuse counseling and surveillance of alcoholic; F41.0 Panic disorder [episodic paroxysmal anxiety]; F43.10 Post-traumatic stress disorder, unspecified; G47.00 Insomnia, unspecified; I10 Essential (primary) hypertension; R45.850 Homicidal ideations; Y04.0XXA Assault by unarmed brawl or fight, initial encounter; Z79.899 Other long term (current) drug therapy; Z88.8 Allergy status to other drugs, medicaments and biological substances; Z90.49 Acquired absence of other specified parts of digestive tract; Z98.51 Tubal ligation status
CPT/HCPCS: 80053; 80061; 80306; 81001; 82075; 82248; 83036; 84443; 85025; 87635; 99285